=== PATIENT | female | born 1980 | race Two or more races ===

== ENCOUNTER → 2017-07-15 | Outpatient (REF) | payer BC | LOC: M SFHCWAGY 08:39 | PROVIDERS: ATTEND Nurse Practitioner Women's Health | DX: Z01.419 Encounter for gynecological examination (general) (routine) without abnormal findings (principal); Z11.51 Encounter for screening for human papillomavirus (HPV); R87.610 Atypical squamous cells of undetermined significance on cytologic smear of cervix (ASC-US) ==

== ENCOUNTER → 2017-07-21 | Outpatient (CLI) | payer BC ==
--- NOTE | 2017-07-22 06:19 | REP ---
Clinical: Menorrhagia . Technique: Transabdominal pelvic ultrasound followed by transvaginal examination for better evaluation of the endometrium and adnexa. Findings: Bladder is unremarkable and measures 10.4 x 6.2 x 9.7 cm . Normal anteverted uterus measures 7.9 x 5.5 x 4.3 cm . The endometrial complex measures 8.7 mm thickness with small amount of endocervical fluid. No discrete uterine or endometrial abnormalities are appreciated. Bilateral ovaries are normal in appearance. Right ovary measures 3.3 x 2.1 x 2.4 cm with sub centimeter follicles. Left ovary measures 4.1 x 2.7 x 3.3 cm with 2.8 cm septated physiologic cyst / dominant follicle. No pelvic fluid or adnexal mass lesion. Impression: 1. Essentially normal pelvic ultrasound as described above.
== END ==
LOC: M WHC 08:03
PROVIDERS: ATTEND Nurse Practitioner Women's Health
DX: N92.0 Excessive and frequent menstruation with regular cycle (principal)

== ENCOUNTER → 2018-07-16 | Outpatient (REF) | payer BC ==
[2018-07-18 15:36] LABS: HPV HYBRID CAPTURE II Negative (Negative)
== END ==
LOC: M SFHCWAGY 09:40
DX: Z12.4 Encounter for screening for malignant neoplasm of cervix (principal)
CPT/HCPCS: G0123

== ENCOUNTER → 2018-12-02 | Outpatient (CLI) | payer BC ==
[2018-12-02 13:03] LABS: BASO # 0.1 10^3/uL (0.0-0.2); BASO % 1.1 % (0.0-1.0); EOS # 0.2 10^3/uL (0.0-0.50); EOS % 2.4 % (0.0-3.0); HEMATOCRIT 39.9 % (36.0-47.0); HEMOGLOBIN 13.7 g/dl (12.0-15.5); LYMPH # 1.6 10^3/uL (1.5-4.5); LYMPH % 25.4 % (24.0-44.0); MEAN CORPUSCULAR HEMOGLOBIN 32.9 pg (27.0-33.0); MEAN CORPUSCULAR HGB CONC 34.3 g/dl (32.0-36.5); MEAN CORPUSCULAR VOLUME 95.9 fl (80.0-96.0); MONO # 0.6 10^3/uL (0.0-0.8); MONO % 8.8 % (0.0-5.0); NEUTROPHILS # 3.9 10^3/uL (1.8-7.7); PLATELET COUNT, AUTOMATED 320 10^3/uL (150-450); RED BLOOD COUNT 4.16 10^6/uL (4.00-5.40); WHITE BLOOD COUNT 6.3 10^3/uL (4.0-10.0)
[2018-12-02 13:06] LABS: ALT/SGPT 19 U/L (12-78); BILIRUBIN,TOTAL 0.4 MG/DL (0.2-1.0); BLOOD UREA NITROGEN 15 MG/DL (7-18); CALCIUM LEVEL 8.9 MG/DL (8.5-10.1); CARBON DIOXIDE LEVEL 23 MEQ/L (21-32); CHLORIDE LEVEL 108 MEQ/L (98-107); CHOLESTEROL LEVEL 193 MG/DL (<200); CREATININE FOR GFR 0.96 MG/DL (0.55-1.30); FREE T4 0.94 NG/DL (0.76-1.46); GLOMERULAR FILTRATION RATE > 60.0 (>58); GLUCOSE, FASTING 83 MG/DL (70-100); HDL CHOLESTEROL 67 MG/DL (>40); LDL CHOLESTEROL 118 MG/DL (<100); NON-HDL-C 126 MG/DL; POTASSIUM SERUM 4.8 MEQ/L (3.5-5.1); SODIUM LEVEL 139 MEQ/L (136-145); TOTAL PROTEIN 7.2 GM/DL (6.4-8.2); TRIGLYCERIDES LEVEL 42 MG/DL (<150)
[2018-12-02 13:08] LABS: LUTEINIZING HORMONE 3.8 mIU/mL
[2018-12-02 13:09] LABS: FOLLICLE STIMULATING HORMONE 6.7 mIU/mL
[2018-12-02 13:39] LABS: HEMOGLOBIN A1c 5.1 %
== END ==
LOC: M WUC 08:35
PROVIDERS: ATTEND Physician Assistant
DX: Z13.29 Encounter for screening for other suspected endocrine disorder (principal)

== ENCOUNTER → 2020-12-01 | Outpatient (CLI) | payer BC ==
[2020-12-01 12:59] LABS: BASO # 0.1 10^3/uL (0.0-0.2); BASO % 0.9 % (0.0-1.0); EOS # 0.2 10^3/uL (0.0-0.5); EOS % 2.3 % (0.0-3.0); HEMOGLOBIN 13.9 g/dl (12.0-15.5); LYMPH # 1.7 10^3/uL (1.5-5.0); LYMPH % 26.4 % (24.0-44.0); MEAN CORPUSCULAR HEMOGLOBIN 32.5 pg (27.0-33.0); MEAN CORPUSCULAR HGB CONC 33.9 g/dl (32.0-36.5); MEAN CORPUSCULAR VOLUME 95.8 fl (80.0-96.0); MONO # 0.6 10^3/uL (0.0-0.8); MONO % 9.6 % (0.0-5.0); NEUTROPHILS # 3.9 10^3/uL (1.5-8.5); NEUTROPHILS % 60.5 % (36.0-66.0); PLATELET COUNT, AUTOMATED 276 10^3/uL (150-450); RED BLOOD COUNT 4.28 10^6/uL (4.00-5.40); WHITE BLOOD COUNT 6.5 10^3/uL (4.0-10.0)
[2020-12-01 13:39] LABS: ALBUMIN 4.2 GM/DL (3.2-5.2); ALT/SGPT 26 U/L (12-78); BILIRUBIN,TOTAL 0.6 MG/DL (0.2-1.0); BLOOD UREA NITROGEN 12 MG/DL (7-18); CALCIUM LEVEL 9.6 MG/DL (8.5-10.1); CARBON DIOXIDE LEVEL 26 MEQ/L (21-32); CHLORIDE LEVEL 105 MEQ/L (98-107); CHOLESTEROL LEVEL 219 MG/DL (<200); CHOLESTEROL RISK RATIO 3.041 (<5); CREATININE FOR GFR 0.86 MG/DL (0.55-1.30); FREE T4 1.03 NG/DL (0.76-1.46); GLOMERULAR FILTRATION RATE > 60.0 (>58); GLUCOSE, FASTING 89 MG/DL (70-100); HDL CHOLESTEROL 72 MG/DL (>40); LDL CHOLESTEROL 139 MG/DL (<100); NON-HDL-C 147 MG/DL; POTASSIUM SERUM 4.6 MEQ/L (3.5-5.1); SODIUM LEVEL 139 MEQ/L (136-145); TOTAL PROTEIN 7.3 GM/DL (6.4-8.2); TRIGLYCERIDES LEVEL 41 MG/DL (<150)
== END ==
LOC: M WUC 09:17
PROVIDERS: ATTEND Family Medicine
DX: Z13.220 Encounter for screening for lipoid disorders (principal); Z13.0 Encounter for screening for diseases of the blood and blood-forming organs and certain disorders involving the immune mechanism; Z13.29 Encounter for screening for other suspected endocrine disorder

== ENCOUNTER → 2021-01-13 | Outpatient (CLI) | payer SELFPAY | LOC: M LABSMTC 10:44 | PROVIDERS: ATTEND Pediatrics | DX: Z11.52 Encounter for screening for COVID-19 (principal) ==

== ENCOUNTER → 2021-02-10 | Outpatient (CLI) | payer SELFPAY | LOC: M LABSMTC 09:58 | PROVIDERS: ATTEND Pediatrics | DX: Z11.52 Encounter for screening for COVID-19 (principal) ==

== ENCOUNTER 2021-06-30 22:04 | Emergency (ER) | payer BC ==
[~2021-06-30] VITALS: Ht 162.6 cm; Wt 100.2 kg
[2021-06-30] MEDS ORDERED: HYDR-643 PO (22:23)
--- NOTE | 2021-06-30 23:53 | REPVR ---
PROCEDURE INFORMATION: Exam: XR Left Knee Exam date and time: 06/30/2021 10:43 PM Age: 40 years old Clinical indication: Other: Puncture wound TECHNIQUE: Imaging protocol: XR Left knee. Views: 4 or more views. COMPARISON: No relevant prior studies available. FINDINGS: Bones/joints: Normal. No fracture. Soft tissues: Normal. No soft tissue gas or radiopaque foreign body. IMPRESSION: Negative left knee. Electronically signed by: Milind Lynne On 06/30/2021 23:53:13 PM
[2021-07-01] MEDS ORDERED: MORPHINE 2 MG/ML 1ML VIAL (J2270) IV ONE (00:35)
[2021-07-01] MEDS ORDERED: ceFAZolin SOD 1 GM in D5W MINI-BAG PLUS 50 ML IV ONE (00:35)
[2021-07-01] MEDS ORDERED: NS 1,000 ML IV ONE (00:35)
[2021-07-01] MEDS ORDERED: LIDOCAINE W/EPINEPHRINE 1% 20ML VIAL SC ONE (01:25)
[2021-07-01] MEDS ORDERED: BOOSTRIX/ADACEL VACCINE (DIPHTH/PERTUSS/ACELL/TETANUS) 0.5ML SYR IM ONE (01:55)
[2021-07-01] MEDS ORDERED: CEPH500T PO (03:10)
[2021-07-01] MEDS ORDERED: NORCO 5/325MG TABLET (BULK FOR ED) PO ONE (03:10)
[2021-07-01] MEDS ORDERED: KETO10TAB PO (03:10)
[2021-07-01 03:50] VITALS: BP 136/70
== END 2021-07-01 03:53 | disposition home or self-care (01) ==
LOC: M ED 22:04
DX: S81.012A Laceration without foreign body, left knee, initial encounter (principal); W18.39XA Other fall on same level, initial encounter; Y92.89 Other specified places as the place of occurrence of the external cause; Z91.018 Allergy to other foods; Z87.891 Personal history of nicotine dependence
CPT/HCPCS: 12002; 73564; 90471; 90715; 96365; 96375; 99284; J0690; J2270

== ENCOUNTER → 2021-07-03 | Outpatient (CLI) | payer BC ==
[~2021-07-03] MED LIST: CEPH500T PO; HYDR-643 PO; KETO10TAB PO
--- NOTE | 2021-07-03 16:36 | REP ---
INDICATION: SWELLING LT LEG COMPARISON: None. TECHNIQUE: Real time compression and duplex Doppler interrogation of the left lower extremity deep venous system is performed, including the right common femoral vein.Compression of the left peroneal and posterior tibial veins is performed. FINDINGS: The left common femoral, superficial femoral and popliteal veins are fully compressible with transducer pressure and demonstrate normal spontaneous and phasic flow, without evidence of deep venous thrombosis.The right common femoral vein demonstrates no thrombus.The left peroneal and posterior tibial veins could not be visualized due to body habitus. IMPRESSION: No evidence of deep venous thrombosis of the left lower extremity femoral popliteal venous system. <Electronically signed by Khanh Molina > 07/03/21 [id number]
== END ==
LOC: M RAD 15:14
PROVIDERS: ATTEND Orthopaedic Surgery
DX: R22.42 Localized swelling, mass and lump, left lower limb (principal)

== ENCOUNTER → 2021-08-20 | Outpatient (CLI) | payer BC ==
[~2021-08-20] MED LIST changes: +RA M500C PO
== END ==
LOC: M LABSMTC 11:37
PROVIDERS: ATTEND Anesthesiology
DX: Z01.818 Encounter for other preprocedural examination (principal); Z11.52 Encounter for screening for COVID-19

== ENCOUNTER 2021-08-24 10:10 | Day surgery (SDC) | payer BC ==
[~2021-08-24] VITALS: Ht 162.6 cm; Wt 97.4 kg
[~2021-08-24 10:10] MED LIST changes: +LIDOCAINE 2% 100MG/5ML SDV (FOR ANES.) As Ordered ONE; +NS 1,000 ML IV ONE; +propofoL 200 MG/20 ML VIAL As Ordered ONE
--- OUTSIDE RECORDS SUMMARY | 2021-08-24 10:14 | CCD | Continuity of Care Document ---
Author Author Janay NELSON DO Organization Unknown Address [address] [facility], [facility] [place] [address] Phone [phone] Care Team Providers Care Systems Eng Name Role Phone Regis Albert AUTM [phone] Maddie Howard D.O. AUTM AUTM Unavailable Problems Description No Information Available Social History Type Date Description Comments Sex Unknown ETOH Use 0-1/d Tobacco Use Start: Unknown Non Smoker Recreational Drug Use Denies Drug Use Tobacco Use Start: Unknown End: Unknown Patient is a former smoker quit 5 years ago hx of 1 ppd. Smoking Status Reviewed: 07/10/21 Patient is a former smoker qu it 5 years ago hx of 1 ppd. Allergies, Adverse Reactions, Alerts Active Allergies Criticality Reaction | Severity Comments Date NKDA Unable to assess criticality 07/03/2021 Shellfish-Derived Products Unable to assess criticality swelling, r edness 07/03/2021 Medications Active Medications SIG Qnty Indications Ordering Provide r Date Shaklee Vitalizer Vitamins Unknown Magnesium 400mg-1tab qd Unknown Hydroxyzine 10mg-1tab tid prn Unknown Cephalexin 500mg Tablets Joselito Hudson M.D. Ketorolac Tromethamine 10mg Tablets Joselito Hudson M.D. Immunizations Description No Information Available Vital Signs Date Vital Result Comment 07/10/2021 8:57am Body Temperature 97.3 F 07/03/2021 1:26pm Body Temperature 98.3 F Results Description No Information Available Procedures Date Code Description Status 07/10/2021 99182 Office/Outpatient Established SF MDM 10-19 Min Completed 07/03/2021 08701 Office/Outpatient New Low MDM 30 -44 Minutes Completed Medical Devices Description No Information Available Encounters Type Date Location Provider Dx Diagnosis Office Visit 07/10/2021 9:00a [facility] Taiwo Nelson, DO S81.012D Laceration without foreign body, left kn ee, subs encntr W01.118D Fall same lev fr slip/trip w strk agnst oth sharp obj, subs Office Visit 07/03/2021 1:30p [facility] Taiwo Nelson, DO S81.012A Laceration without foreign body, left kn ee, init encntr M25.562 Pain in left knee M79.89 Other specified soft tissue disorders W01.118A Fall same lev fr slip/trip w strk agnst oth sharp obj, init Assessments Date Code Description Provider 07/10/2021 S81.012D Laceration without f oreign body, left knee, subsequent encounter Bob Nelson, DO 07/10/2021 W01.118D Fall on same level f rom slipping, tripping and stumbling with subsequent striking against other sharp object, subsequent encounter Bob Nelson, 07/03/2021 S81.012A Laceration without f oreign body, left knee, initial encounter Bob Nelson, 07/03/2021 M25.562 Pain in left knee Taiwo Nelson, DO 07/03/2021 M79.89 Other specified soft tissue diso rders Bob Nelson, DO 07/03/2021 W01.118A Fall on same level f rom slipping, tripping and stumbling with subsequent striking against other sharp object, initial encounter Bob Nelson DO Plan of Treatment Future Appointment(s):* 08/08/2021 8:30 am - Ariel Sherwood M.D. at [facility] 07/10/2021 - Bob Nelson DO* S81.012D Laceration without foreign body, left knee, subsequent encounter* Comments:* 1. Suture removal with Steri- Strips added2. Patient weight-bear as tolerated. Return to full duties. Follow-up as needed. * W01.118D Fall on same level from slipping, tripping and stumbling with subsequent striking against other sharp object, subsequent encounter Functional Status Description No Information Available Mental Status Description No Information Available Referrals Refer to Reason for Referral Status Appt Date Ariel Sherwood M.D. FLAT STOOL, CONSTIPATION Scheduled 08/08/2021 [facility] [address] [facility], [place] [id number] [phone]"
--- OUTSIDE RECORDS SUMMARY | 2021-08-24 10:14 | CCD ---
Author Organization Unknown Address [address] [place] [address] Phone [phone] Care Team Providers Care Warehouse Administrative Assistant Name Role Phone Rusty Olsen Unavailable Unavailable Allergies None recorded. Medications Name Status Start Date Stop Date hydroxyzine HCl 10 mg tablet TAKE ONE TABLET BY MOUTH THREE TIMES A DAY NEEDED FOR ANXIETY Active Not available Dwayne 24 Fe 1 mg-20 mcg (24)/75 mg (4) t ablet TAKE ONE TABLET BY MOUTH EVERY DAY Active Not available Problems None recorded. Procedures None recorded. Results Lab Results None recorded. Past Encounters 06/07/2021 SARS-CoV-2 Vaccination Pratibha Schwab PA-C: [address] [place] [address], Ph. Social History None recorded. Vaccine List Vaccine Type COVID-19 vaccine, vector-nr, rS-Ad26, PF , 0.5 mL .5 mL Plan of Care Reminders Provider Appointments None recorded. Lab None recorded. Referral None recorded. Procedures None recorded. Surgeries None recorded. Imaging None recorded. Vitals None recorded.
--- OUTSIDE RECORDS SUMMARY | 2021-08-24 10:14 | CCD | Continuity of Care Document ---
Author Author Janay NELSON DO Organization Unknown Address [address] [facility], [facility] [place] [address] Phone [phone] Care Team Providers Care Building Official Name Role Phone Regis Albert AUTM [phone] Maddie Howard D.O. AUTM AUTM Unavailable Problems [...] Available Procedures Date Code Description Status 07/10/2021 69574 Office/Outpatient Established SF MDM 10-19 Min Completed 07/03/2021 28779 Office/Outpatient New Low MDM 30 -44 Minutes Completed Medical Devices Description No Information Available Encounters Type Date Location Provider Dx Diagnosis Office Visit 07/10/2021 9:00a [facility] Taiwo Nelson, DO S81.012D Laceration without foreign body, left kn ee, subs encntr W01.118D Fall same lev fr slip/trip w strk agnst oth sharp obj, subs Office Visit 07/03/2021 1:30p [facility] Taiwo Nelson, DO S81.012A Laceration without [...] 8:30 am - Ariel Sherwood M.D. at [facility] 07/10/2021 - Bob Nelson DO* [...] Sherwood M.D. FLAT STOOL, CONSTIPATION Scheduled 08/08/2021 [facility] [address] [facility], [place] [id number] [phone]"
--- OUTSIDE RECORDS SUMMARY | 2021-08-24 10:14 | CCD | Continuity of Care Document ---
Author Author Janay NELSON DO Organization Unknown Address [address] [facility], [facility] [place] [address] Phone [phone] Care Team Providers Care Microsoft Bi Architect Name Role Phone Regis Albert AUTM [phone] Maddie Howard D.O. AUTM AUTM Unavailable Problems Description No Information Available Social History Type Date Description Comments Sex Unknown ETOH Use 0-1/d Tobacco Use Start: Unknown Non Smoker Recreational Drug Use Denies Drug Use Tobacco Use Start: Unknown End: Unknown Patient is a former smoker quit 5 years ago hx of 1 ppd. Smoking Status Reviewed: 07/03/21 Patient is a former smoker qu it [...] Available Vital Signs Date Vital Result Comment 07/03/2021 1:26pm Body Temperature 98.3 F Results Description No Information Available Procedures Description No Information Available Medical Devices Description No Information Available Encounters Description No Information Available Assessments Date Code Description Provider 07/03/2021 S81.012A Laceration without f oreign body, left knee, initial encounter Bob Nelson DO Plan of Treatment Future Appointment(s):* 07/10/2021 9:00 am - Bob Nelson DO at [facility] * 08/08/2021 8:30 am - Ariel Sherwood M.D. at [facility] 07/03/2021 - Bob Nelson DO* S81.012A Laceration without foreign body, left knee, initial encounter* Comments:* Patient had a fall approximately 3 days ago. Direct trauma unsure knee.Limited range of motion due to pain. Diffuse swelling below the knee.Plan:1. Ultrasound left lower extremity to rule out DVT. If positive patient to go to the emergency room.[Discussed DVT and PE, recommended ultrasound left leg, if positive needs to go to ER for anticoagulation treatment.]2. Knee immobilizer to be used when mobilizing with crutches3. Follow-up in 1 week to remove sutures. May clean laceration with peroxide and sterile dressing. Functional Status Description No Information Available Mental Status Description No Information Available Referrals Refer to Dr Reason for Referral Status Appt Date Ariel Sherwood M.D. FLAT STOOL, CONSTIPATION Scheduled 08/08/2021 [facility] [address] [facility], [address] [place] [address] [phone]"
--- OUTSIDE RECORDS SUMMARY | 2021-08-24 10:15 | CCD ---
Author Author [facility] Organization [facility] Address Unknown Phone Unavailable Care Team Providers Care Surface Water Manager Name Role Phone CHRIS NEWMAN MD Unavailable Unavailable CHRIS NEWMAN MD Unavailable Unavailable CHRIS NEWMAN MD Unavailable Unavailable CHRIS NEWMAN MD Unavailable Unavailable CHRIS NEWMAN MD Unavailable Unavailable CHRIS NEWMAN MD Unavailable Unavailable CHRIS NEWMAN MD Unavailable Unavailable CHRIS NEWMAN MD Unavailable Unavailable CHRIS NEWMAN MD Unavailable Unavailable CHRIS NEWMAN MD Unavailable Unavailable CHRIS NEWMAN MD Unavailable Unavailable CHRIS NEWMAN MD Unavailable Unavailable CHRIS NEWMAN MD Unavailable Unavailable CHRIS NEWMAN MD Unavailable Unavailable CHRIS NEWMAN MD Unavailable Unavailable CHRIS NEWMAN MD Unavailable Unavailable CHRIS NEWMAN MD Unavailable Unavailable CHRIS NEWMAN MD Unavailable Unavailable CHRIS NEWMAN MD Unavailable Unavailable CHRIS NEWMAN MD Unavailable Unavailable CHRIS NEWMAN MD Unavailable Unavailable CHRIS NEWMAN MD Unavailable Unavailable DALPE-MAYTE, CHRIS TRISTAN Unavailable Unavailable DALPE-MAYTE, CHRIS TRISTAN Unavailable Unavailable DALPE-MAYTE, CHRIS TRISTAN Unavailable Unavailable DALPE-MAYTE, CHRIS TRISTAN Unavailable Unavailable DALPE-MAYTE, CHRIS TRISTAN Unavailable Unavailable DALPE-MAYTE, CHRIS TRISTAN Unavailable Unavailable DALPE-MAYTE, CHRIS TRISTAN Unavailable Unavailable DALPE-MAYTE, CHRIS TRISTAN Unavailable Unavailable DALPE-MAYTE, CHRIS TRISTAN Unavailable Unavailable DALPE-MAYTE, CHRIS TRISTAN Unavailable Unavailable DALPE-MAYTE, CHRIS TRISTAN Unavailable Unavailable DALPE-MAYTE, CHRIS TRISTAN Unavailable Unavailable DALPE-MAYTE, CHRIS TRISTAN Unavailable Unavailable DALPE-MAYTE, CHRIS TRISTAN Unavailable Unavailable DALPE-MAYTE, CHRIS TRISTAN Unavailable Unavailable DALPE-MAYTE, CHRIS TRISTAN Unavailable Unavailable DALPE-MAYTE, CHRIS TRISTAN Unavailable Unavailable DALPE-MAYTE, CHRIS TRISTAN Unavailable Unavailable DALPE-MAYTE, CHRIS TRISTAN Unavailable Unavailable DALPE-MAYTE, CHRIS TRISTAN Unavailable Unavailable DALPE-MAYTE, CHRIS TRISTAN Unavailable Unavailable DALPE-MAYTE, CHRIS TRISTAN Unavailable Unavailable DALPE-MAYTE, CHRIS TRISTAN Unavailable Unavailable DALPE-MAYTE, CHRIS TRISTAN Unavailable Unavailable DALPE-MAYTE, CHRIS TRISTAN Unavailable Unavailable DALPE-MAYTE, CHRIS TRISTAN Unavailable Unavailable DALPE-MAYTE, CHRIS TRISTAN Unavailable Unavailable DALPE-MAYTE, CHRIS TRISTAN Unavailable Unavailable DALPE-MAYTE, CHRIS TRISTAN Unavailable Unavailable FRANCHESCAPE-MAYTE, CHRIS TRISTAN Unavailable Unavailable DALPE-MAYTE, CHRIS TRISTAN Unavailable Unavailable DALPE-MAYTE, CHRIS TRISTAN Unavailable Unavailable DALPE-MAYTE, CHRIS TRISTAN Unavailable Unavailable DALPE-MAYTECHRIS MD Unavailable Unavailable DALPE-MAYTECHRIS MD Unavailable Unavailable DALPE-MAYTECHRIS MD Unavailable Unavailable DALPE-MAYTE, CHRIS TRISTAN Unavailable Unavailable DALPE-MAYTE, CHRIS TRISTAN Unavailable Unavailable DALPE-MAYTE, CHRIS TRISTAN Unavailable Unavailable SHAYNE-JULIO, KAELA DO Unavailable Unavailable SHAYNE-JULIO, KAELA DO Unavailable Unavailable SHAYNE-JULIO, KAELA DO Unavailable Unavailable SHAYNE-JULIO, KAELA DO Unavailable Unavailable SHAYNE-JULIO, KAELA DO Unavailable Unavailable SHAYNE-JULIO, KAELA DO Unavailable Unavailable SHAYNE-JULIO, KAELA DO Unavailable Unavailable SHAYNE-JULIO, KAELA DO Unavailable Unavailable SHAYNE-JULIO, KAELA DO Unavailable Unavailable SHAYNE-JULIO, KAELA DO Unavailable Unavailable SHAYNE-JULIO, KAELA DO Unavailable Unavailable SHAYNE-JULIO, KAELA DO Unavailable Unavailable SHAYNE-JULIO, KAELA DO Unavailable Unavailable SHAYNE-JULIO, KAELA DO Unavailable Unavailable SHANYE-JULIO, KAELA DO Unavailable Unavailable SHAYNE-JULIO, KAELA DO Unavailable Unavailable SHAYNE-JULIO, KAELA DO Unavailable Unavailable SHAYNE-JULIO, KAELA DO Unavailable Unavailable SHAYNE-JULIO, KAELA DO Unavailable Unavailable SHAYNE-JULIO, KAELA DO Unavailable Unavailable SHAYNE-JULIO, KAELA DO Unavailable Unavailable SHAYNE-JULIO, KAELA DO Unavailable Unavailable SHAYNE-JULIO, KAELA DO Unavailable Unavailable SHAYNE-JULIO, KAELA DO Unavailable Unavailable SHAYNE-JULIO, KAELA DO Unavailable Unavailable SHAYNE-JULIO, KAELA DO Unavailable Unavailable SHAYNE-JULIO, KAELA DO Unavailable Unavailable SHAYNE-JULIO, KAELA DO Unavailable Unavailable SHAYNE-JULIO, KAELA DO Unavailable Unavailable SHAYNE-JULIO, KAELA DO Unavailable Unavailable SHAYNE-JULIO, KAELA DO Unavailable Unavailable SHAYNE-JULIO, KAELA DO Unavailable Unavailable SHAYNE-JULIO, KAELA DO Unavailable Unavailable SHAYNE-JULIO, KAELA DO Unavailable Unavailable SHAYNE-JULIO, KAELA DO Unavailable Unavailable SHAYNE-JULIO, KAELA DO Unavailable Unavailable SHAYNE-JULIO, KAELA DO Unavailable Unavailable SHAYNE-JULIO, KAELA DO Unavailable Unavailable SHAYNE-JULIO, KAELA DO Unavailable Unavailable SHAYNE-JULIO, KAELA DO Unavailable Unavailable SHAYNE-JULIO, KAELA DO Unavailable Unavailable SHAYNE-JULIO, KAELA DO Unavailable Unavailable SHAYNE-JULIO, KAELA DO Unavailable Unavailable SHAYNE-JULIO, KAELA DO Unavailable Unavailable SHAYNE-JULIO, KAELA DO Unavailable Unavailable SHAYNE-JULIO, KAELA DO Unavailable Unavailable SHAYNE-JULIO, KAELA DO Unavailable Unavailable SHAYNE-JULIO, KAELA DO Unavailable Unavailable SHAYNE-JULIO, KAELA DO Unavailable Unavailable SHAYNE-JULIO, KAELA DO Unavailable Unavailable SHAYNE-JULIO, KAELA DO Unavailable Unavailable SHAYNE-JULIO, KAELA DO Unavailable Unavailable SHAYNE-JULIO, KAELA DO Unavailable Unavailable SHAYNE-JULIO, KAELA DO Unavailable Unavailable SHAYNE-JULIO, KAELA DO Unavailable Unavailable SHAYNE-JULIO, KAELA DO Unavailable Unavailable SHAYNE-JULIO, KAELA DO Unavailable Unavailable SHAYNE-JULIO, KAELA DO Unavailable Unavailable SHAYNE-JULIO, KAELA DO Unavailable Unavailable SHAYNE-JULIO, KAELA DO Unavailable Unavailable SHAYNE-JULIO, KAELA DO Unavailable Unavailable SHAYNE-JULIO, KAELA DO Unavailable Unavailable SHAYNE-JULIO, KAELA DO Unavailable Unavailable SHAYNE-JULIO, KAELA DO Unavailable Unavailable SHAYNE-JULIO, KAELA DO Unavailable Unavailable SHAYNE-JULIO, KAELA DO Unavailable Unavailable SHAYNE-JULIO, KAELA DO Unavailable Unavailable SHAYNE-UJLIO, KAELA DO Unavailable Unavailable SHAYNE-JULIO, KAELA DO Unavailable Unavailable SHAYNE-JULIO, KAELA DO Unavailable Unavailable SHAYNE-JULIO, KAELA DO Unavailable Unavailable SHAYNE-JULIO, KAELA DO Unavailable Unavailable SHAYNE-JULIO, KAELA DO Unavailable Unavailable SHAYNE-JULIO, KAELA DO Unavailable Unavailable SHAYNE-JULIO, KAELA DO Unavailable Unavailable SHAYNE-JULIO, KAELA DO Unavailable Unavailable SHAYNE-JULIO, KAELA DO Unavailable Unavailable SHAYNE-JULIO, KAELA DO Unavailable Unavailable SHAYNE-JULIO, KAELA DO Unavailable Unavailable SHAYNE-JULIO, KAELA DO Unavailable Unavailable SHAYNE-JULIO, KAELA DO Unavailable Unavailable SHAYNE-JULIO, KAELA DO Unavailable Unavailable SHAYNE-JULIO, KAELA DO Unavailable Unavailable SAHYNE-JULIO, KAELA DO Unavailable Unavailable NICOLE BRAR MD Unavailable Unavailable NICOLE BRAR MD Unavailable Unavailable DIXE, Antoinette PROFESSIONAL SOCCER PLAYER Unavailable Unavailable DIXE, Antoinette PROFESSIONAL SOCCER PLAYER Unavailable Unavailable DIXE, Antoinette PROFESSIONAL SOCCER PLAYER Unavailable Unavailable DIXE, Antoinette PROFESSIONAL SOCCER PLAYER Unavailable Unavailable DIXE, Antoinette PROFESSIONAL SOCCER PLAYER Unavailable Unavailable DIXE, Antoinette PROFESSIONAL SOCCER PLAYER Unavailable Unavailable DIXE, Antoinette PROFESSIONAL SOCCER PLAYER Unavailable Unavailable DIXE, Antoinette PROFESSIONAL SOCCER PLAYER Unavailable Unavailable DIXE, Antoinette PROFESSIONAL SOCCER PLAYER Unavailable Unavailable DIXE, Antoinette PROFESSIONAL SOCCER PLAYER Unavailable Unavailable DIXE, Antoinette PROFESSIONAL SOCCER PLAYER Unavailable Unavailable DIXE, Antoinette PROFESSIONAL SOCCER PLAYER Unavailable Unavailable DIXE, Antoinette PROFESSIONAL SOCCER PLAYER Unavailable Unavailable DIXE, Antoinette PROFESSIONAL SOCCER PLAYER Unavailable Unavailable DIXE, Antoinette PROFESSIONAL SOCCER PLAYER Unavailable Unavailable DIXE, Antoinette PROFESSIONAL SOCCER PLAYER Unavailable Unavailable DIXE, Antoinette PROFESSIONAL SOCCER PLAYER Unavailable Unavailable DIXE, Antoinette PROFESSIONAL SOCCER PLAYER Unavailable Unavailable DIXE, Antoinette PROFESSIONAL SOCCER PLAYER Unavailable Unavailable DIXE, Antoinette PROFESSIONAL SOCCER PLAYER Unavailable Unavailable DIXE, Antoinette PROFESSIONAL SOCCER PLAYER Unavailable Unavailable DIXE, Antoinette PROFESSIONAL SOCCER PLAYER Unavailable Unavailable DIXE, Antoinette PROFESSIONAL SOCCER PLAYER Unavailable Unavailable DIXE, Antoinette PROFESSIONAL SOCCER PLAYER Unavailable Unavailable DIXE, Antoinette PROFESSIONAL SOCCER PLAYER Unavailable Unavailable DIXE, Antoinette PROFESSIONAL SOCCER PLAYER Unavailable Unavailable DIXE, Antoinette PROFESSIONAL SOCCER PLAYER Unavailable Unavailable DIXE, Antoinette PROFESSIONAL SOCCER PLAYER Unavailable Unavailable DIXE, Antoinette PROFESSIONAL SOCCER PLAYER Unavailable Unavailable DIXE, Antoinette PROFESSIONAL SOCCER PLAYER Unavailable Unavailable DIXE, Antoinette PROFESSIONAL SOCCER PLAYER Unavailable Unavailable DIXE, Antoinette PROFESSIONAL SOCCER PLAYER Unavailable Unavailable DIXE, Antoinette PROFESSIONAL SOCCER PLAYER Unavailable Unavailable DIXE, Antoinette PROFESSIONAL SOCCER PLAYER Unavailable Unavailable DIXE, Antoinette PROFESSIONAL SOCCER PLAYER Unavailable Unavailable DIXE, Antoinette PROFESSIONAL SOCCER PLAYER Unavailable Unavailable DIXE, Antoinette PROFESSIONAL SOCCER PLAYER Unavailable Unavailable DIXE, Antoinette PROFESSIONAL SOCCER PLAYER Unavailable Unavailable DIXE, Antoinette PROFESSIONAL SOCCER PLAYER Unavailable Unavailable DIXE, Antoinette PROFESSIONAL SOCCER PLAYER Unavailable Unavailable DIXE, Antoinette PROFESSIONAL SOCCER PLAYER Unavailable Unavailable DIXE, Antoinette PROFESSIONAL SOCCER PLAYER Unavailable Unavailable DIXE, Antoinette PROFESSIONAL SOCCER PLAYER Unavailable Unavailable DIXE, Antoinette PROFESSIONAL SOCCER PLAYER Unavailable Unavailable DIXE, Antoinette PROFESSIONAL SOCCER PLAYER Unavailable Unavailable DIXE, Antoinette PROFESSIONAL SOCCER PLAYER Unavailable Unavailable DIXE, Antoinette PROFESSIONAL SOCCER PLAYER Unavailable Unavailable DIXE, Antoinette PROFESSIONAL SOCCER PLAYER Unavailable Unavailable DIXE, Antoinette PROFESSIONAL SOCCER PLAYER Unavailable Unavailable DIXE, Antoinette PROFESSIONAL SOCCER PLAYER Unavailable Unavailable DIXE, Antoinette PROFESSIONAL SOCCER PLAYER Unavailable Unavailable DIXE, Antoinette PROFESSIONAL SOCCER PLAYER Unavailable Unavailable DIXE, Antoinette PROFESSIONAL SOCCER PLAYER Unavailable Unavailable DIXE, Antoinette PROFESSIONAL SOCCER PLAYER Unavailable Unavailable DIXE, Antoinette PROFESSIONAL SOCCER PLAYER Unavailable Unavailable O'jayant, A Regis PA Unavailable Unavailable O'jayant, A Regis PA Unavailable Unavailable O'jayant, A Regis PA Unavailable Unavailable O'jayant, A Regis PA Unavailable Unavailable O'jayant, A Regis PA Unavailable Unavailable O'jayant, A Regis PA Unavailable Unavailable O'ajyant, A Regis PA Unavailable Unavailable O'jayant, A Regis PA Unavailable Unavailable O'jayant, A Regis PA Unavailable Unavailable O'jayant, A Regis PA Unavailable Unavailable O'jayant, A Regis PA Unavailable Unavailable O'jayant, A Regis PA Unavailable Unavailable O'jayant, A Regis PA Unavailable Unavailable O'jayant, A Reigs PA Unavailable Unavailable O'jayant, A Regis PA Unavailable Unavailable O'jayant, A Regis PA Unavailable Unavailable O'jayant, A Regis PA Unavailable Unavailable Ojayant, A Regis PA Unavailable Unavailable an, A Regis PA Unavailable Unavailable O'jayant, A Regis PA Unavailable Unavailable O'jayant, A Regis PA Unavailable Unavailable O'jayant, A Regis PA Unavailable Unavailable Ojayant, A Regis PA Unavailable Unavailable O, A Regis PA Unavailable Unavailable Ojayant, A Regis PA Unavailable Unavailable O, A Regis PA Unavailable Unavailable O', A Regis PA Unavailable Unavailable , A Regis PA Unavailable Unavailable , A Regis PA Unavailable Unavailable O, A Regis PA Unavailable Unavailable Ojayant, A Regis PA Unavailable Unavailable O'jayant, A Regis PA Unavailable Unavailable O'jayant, A Regis PA Unavailable Unavailable SHAYNE-JULIO, KAELA DO Unavailable Unavailable SHAYNE-JULIO, KAELA DO Unavailable Unavailable SHAYNE-JULIO, KAELA DO Unavailable Unavailable SHAYNE-JULIO, KAELA DO Unavailable Unavailable SHAYNE-JULIO, KAELA DO Unavailable Unavailable SHAYNE-JULIO, KAELA DO Unavailable Unavailable SHAYNE-JULIO, KAELA DO Unavailable Unavailable SHAYNE-JULIO, KAELA DO Unavailable Unavailable SHAYNE-JULIO, KAELA DO Unavailable Unavailable SHAYNE-JULIO, KAELA DO Unavailable Unavailable SHAYNE-JULIO, KAELA DO Unavailable Unavailable SHAYNE-JULIO, KAELA DO Unavailable Unavailable SHAYNE-JULIO, KAELA DO Unavailable Unavailable SHAYNE-JULIO, KAELA DO Unavailable Unavailable SHAYNE-JULIO, KAELA DO Unavailable Unavailable SHAYNE-JULIO, KAELA DO Unavailable Unavailable SHAYNE-JULIO, KAELA DO Unavailable Unavailable SHAYNE-JULIO, KAELA DO Unavailable Unavailable SHAYNE-JULIO, KAELA DO Unavailable Unavailable SHAYNE-JULIO, KAELA DO Unavailable Unavailable SHAYNE-JULIO, KAELA DO Unavailable Unavailable SHAYNE-JULIO, KAELA DO Unavailable Unavailable SHAYNE-JULIO, KAELA DO Unavailable Unavailable SHAYNE-JULIO, KAELA DO Unavailable Unavailable SHAYNE-JULIO, KAELA DO Unavailable Unavailable SHAYNE-JULIO, KAELA DO Unavailable Unavailable SHAYNE-JULIO, KAELA DO Unavailable Unavailable SHAYNE-JULIO, KAELA DO Unavailable Unavailable SHAYNE-JULIO, KAELA DO Unavailable Unavailable SHAYNE-JULIO, KAELA DO Unavailable Unavailable SHAYNE-JULIO, KAELA DO Unavailable Unavailable SHAYNE-JULIO, KAELA DO Unavailable Unavailable SHAYNE-JULIO, KAELA DO Unavailable Unavailable SHAYNE-JULIO, KAELA DO Unavailable Unavailable SHAYNE-JULIO, KAELA DO Unavailable Unavailable SHAYNE-JULIO, KAELA DO Unavailable Unavailable SHAYNE-JULIO, KAELA DO Unavailable Unavailable SHAYNE-JULIO, KAELA DO Unavailable Unavailable SHAYNE-JULIO, KAELA DO Unavailable Unavailable SHAYNE-JULIO, KAELA DO Unavailable Unavailable SHAYNE-JULIO, KAELA DO Unavailable Unavailable SHAYNE-JULIO, KAELA DO Unavailable Unavailable SHAYNE-JULIO, KAELA DO Unavailable Unavailable SHAYNE-JULIO, KAELA DO Unavailable Unavailable SHAYNE-JULIO, KAELA DO Unavailable Unavailable SHAYNE-JULIO, KAELA DO Unavailable Unavailable SHAYNE-JULIO, KAELA DO Unavailable Unavailable SHAYNE-JULIO, KAELA DO Unavailable Unavailable SHAYNE-JULIO, KAELA DO Unavailable Unavailable SHAYNE-JULIO, KAELA DO Unavailable Unavailable SHAYNE-JULIO, KAELA DO Unavailable Unavailable SHAYNE-JULIO, KAELA DO Unavailable Unavailable SHAYNE-JULIO, KAELA DO Unavailable Unavailable SHAYNE-JULIO, KAELA DO Unavailable Unavailable SHAYNE-JULIO, KAELA DO Unavailable Unavailable SHAYNE-JULIO, KAELA DO Unavailable Unavailable SHAYNE-JULIO, KAELA DO Unavailable Unavailable SHAYNE-JULIO, KAELA DO Unavailable Unavailable SHAYNE-JULIO, KAELA DO Unavailable Unavailable SHAYNE-JULIO, KAELA DO Unavailable Unavailable SHAYNE-JULIO, KAELA DO Unavailable Unavailable SHAYNE-JULIO, KAELA DO Unavailable Unavailable SHAYNE-JULIO, KAELA DO Unavailable Unavailable SHAYNE-JULIO, KAELA DO Unavailable Unavailable SHAYNE-JULIO, KAELA DO Unavailable Unavailable SHAYNE-JULIO, KAELA DO Unavailable Unavailable SHAYNE-JULIO, KAELA DO Unavailable Unavailable SHAYNE-JULIO, KAELA DO Unavailable Unavailable SHAYNE-JULIO, KAELA DO Unavailable Unavailable SHAYNE-JULIO, KAELA DO Unavailable Unavailable SHAYNE-JULIO, KAELA DO Unavailable Unavailable SHAYNE-JULIO, KAELA DO Unavailable Unavailable SHAYNE-JULIO, KAELA DO Unavailable Unavailable SHAYNE-JULIO, KAELA DO Unavailable Unavailable SHAYNE-JULIO, KAELA DO Unavailable Unavailable SHAYNE-JULIO, KAELA DO Unavailable Unavailable SHAYNE-JULIO, KAELA DO Unavailable Unavailable SHAYNE-JULIO, KAELA DO Unavailable Unavailable SHAYNE-JULIO, KAELA DO Unavailable Unavailable SHAYNE-JULIO, KAELA DO Unavailable Unavailable SHAYNE-JULIO, KAELA DO Unavailable Unavailable SHAYNE-JULIO, KAELA DO Unavailable Unavailable SHAYNE-JULIO, KAELA DO Unavailable Unavailable SHAYNE-JULIO, KAELA DO Unavailable Unavailable Scordo, M Pratibha PA Unavailable Unavailable Scordo, M Pratibha PA Unavailable Unavailable Scordo, M Pratibha PA Unavailable Unavailable Scordo, M Pratibha PA Unavailable Unavailable Scordo, M Pratibha PA Unavailable Unavailable Scordo, M Pratibha PA Unavailable Unavailable Scordo, M Pratibha PA Unavailable Unavailable Scordo, M Pratibha PA Unavailable Unavailable Scordo, M Pratibha PA Unavailable Unavailable Scordo, M Pratibha PA Unavailable Unavailable Scordo, M Pratibha PA Unavailable Unavailable Scordo, M Pratibha PA Unavailable Unavailable Scordo, M Pratibha PA Unavailable Unavailable Scordo, M Pratibha PA Unavailable Unavailable Scordo, M Pratibha PA Unavailable Unavailable Scordo, M Pratibha PA Unavailable Unavailable Scordo, M Pratibha PA Unavailable Unavailable Scordo, M Pratibha PA Unavailable Unavailable Scordo, M Pratibha PA Unavailable Unavailable Scordo, M Pratibha PA Unavailable Unavailable Scordo, M Pratibha PA Unavailable Unavailable Scordo, M Pratibha PA Unavailable Unavailable Scordo, M Pratibha PA Unavailable Unavailable Scordo, M Pratibha PA Unavailable Unavailable Scordo, M Pratibha PA Unavailable Unavailable Scordo, M Pratibha PA Unavailable Unavailable Scordo, M Pratibha PA Unavailable Unavailable Scordo, M Pratibha PA Unavailable Unavailable Scordo, M Pratibha PA Unavailable Unavailable Scordo, M Pratibha PA Unavailable Unavailable Scordo, M Pratibha PA Unavailable Unavailable Scordo, M Pratibha PA Unavailable Unavailable Scordo, M Pratibha PA Unavailable Unavailable Scordo, M Pratibha PA Unavailable Unavailable Scordo, M Pratibha PA Unavailable Unavailable Scordo, M Pratibha PA Unavailable Unavailable Scordo, M Pratibha PA Unavailable Unavailable Scordo, M Pratibha PA Unavailable Unavailable Scordo, M Pratibha PA Unavailable Unavailable Scordo, M Pratibha PA Unavailable Unavailable Scordo, M Pratibha PA Unavailable Unavailable Scordo, M Pratibha PA Unavailable Unavailable Scordo, M Pratibha PA Unavailable Unavailable Scordo, M Pratibha PA Unavailable Unavailable Scordo, M Pratibha PA Unavailable Unavailable Scordo, M Pratibha PA Unavailable Unavailable Scordo, M Pratibha PA Unavailable Unavailable CHRIS NEWMAN MD Unavailable Unavailable CHRIS NEWMAN MD Unavailable Unavailable CHRIS NEWMAN MD Unavailable Unavailable CHRIS NEWMAN MD Unavailable Unavailable CHRIS NEWMAN MD Unavailable Unavailable CHRIS NEWMAN MD Unavailable Unavailable CHRIS NEWMAN MD Unavailable Unavailable CHRIS NEWMAN MD Unavailable Unavailable CHRIS NEWMAN MD Unavailable Unavailable CHRIS NEWMAN MD Unavailable Unavailable CHRIS NEWMAN MD Unavailable Unavailable CHRIS NEWMAN MD Unavailable Unavailable CHRIS NEWMAN MD Unavailable Unavailable CHRIS NEWMAN MD Unavailable Unavailable CHRIS NEWMAN MD Unavailable Unavailable CHRIS NEWMAN MD Unavailable Unavailable CHRIS NEWMAN MD Unavailable Unavailable DALPE-MAYTECHRIS MD Unavailable Unavailable DALPE-MAYTECHRIS MD Unavailable Unavailable DALPE-MAYTE, CHRIS TRISTAN Unavailable Unavailable DALPE-MAYTE, CHRIS TRISTAN Unavailable Unavailable DALPE-MAYTE, CHRIS TRISTAN Unavailable Unavailable DALPE-MAYTE, CHRIS TRISTAN Unavailable Unavailable DALPE-MAYTECHRIS MD Unavailable Unavailable DALPE-MAYTE, CHRIS TRISTAN Unavailable Unavailable DALPE-MAYTE, CHRIS TRISTAN Unavailable Unavailable DALPE-MAYTE, CHRIS TRISTAN Unavailable Unavailable DALPE-MAYTE, CHRIS TRISTAN Unavailable Unavailable DALPE-MAYTE, CHRIS TRISTAN Unavailable Unavailable DALPE-MAYTECHRIS MD Unavailable Unavailable DALPE-MAYTE, CHRIS TRISTAN Unavailable Unavailable DALPE-MAYTE, CHRIS TRISTAN Unavailable Unavailable DALPE-MAYTE, CHRIS TRISTAN Unavailable Unavailable DALPE-MAYTE, CHRIS TRISTAN Unavailable Unavailable DALPE-MAYTECHRIS MD Unavailable Unavailable DALPE-MAYTECHRIS MD Unavailable Unavailable DALPE-MAYTECHRIS MD Unavailable Unavailable DALPE-MAYTECHRIS MD Unavailable Unavailable DALPE-MAYTECHRIS MD Unavailable Unavailable DALPE-MAYTECHRIS MD Unavailable Unavailable FRANCHESCAPE-MAYTECHRIS MD Unavailable Unavailable FRANCHESCAPE-MAYTECHRIS MD Unavailable Unavailable FRANCHESCAPE-MAYTECHRIS MD Unavailable Unavailable FRANCHESCAPE-MAYTECHRIS MD Unavailable Unavailable FRANCHESCAPE-MAYTECHRIS MD Unavailable Unavailable FOUZIA-CHRIS HU MD Unavailable Unavailable MARIELOSMAYTECHRIS MD Unavailable Unavailable CHRIS NEWMAN MD Unavailable Unavailable CHRIS NEWMAN MD Unavailable Unavailable FRANCHESCAPE-MAYTECHRIS MD Unavailable Unavailable DALPE-CHRIS HU MD Unavailable Unavailable CHRIS NEWMAN MD Unavailable Unavailable CHRIS NEWMAN MD Unavailable Unavailable CHRIS NEWMAN MD Unavailable Unavailable FRANCHESCAPECHRIS RANDHAWA MD Unavailable Unavailable FRANCHESCAPECHRIS RANDHAWA MD Unavailable Unavailable CHRIS NEWMAN MD Unavailable Unavailable CHRIS NEWMAN MD Unavailable Unavailable CHRIS NEWMAN MD Unavailable Unavailable DALPECHRIS RANDHAWA MD Unavailable Unavailable DALPECHRIS RANDHAWA MD Unavailable Unavailable Re-disclosure Warning The records that you are about to access may contain information from federally-assisted alcohol or drug abuse programs. If such information is present, then the following federally mandated warning applies: This information has been disclosed to you from records protected by federal confidentiality rules (42 CFR part 2). The federal rules prohibit you from making any further disclosure of this information unless further disclosure is expressly permitted by the written consent of the person to whom it pertains or as otherwise permitted by 42 CFR part 2. A general authorization for the release of medical or other information is NOT sufficient for this purpose. The Federal rules restrict any use of the information to criminally investigate or prosecute any alcohol or drug abuse patient.The records that you are about to access may contain highly sensitive health information, the redisclosure of which is protected by Article 27-F of the [facility] Public Health law. If you continue you may have access to information: Regarding HIV / AIDS; Provided by facilities licensed or operated by the [facility] Office of Mental Health; or Provided by the [facility] Office for People With Developmental Disabilities. If such information is present, then the following [facility] mandated warning applies: This information has been disclosed to you from confidential records which are protected by state law. State law prohibits you from making any further disclosure of this information without the specific written consent of the person to whom it pertains, or as otherwise permitted by law. Any unauthorized further disclosure in violation of state law may result in a fine or retirement sentence or both. A general authorization for the release of medical or other information is NOT sufficient authorization for further disc losure. Allergies and Adverse Reactions Type Description Substance Reaction Status Data Source(s ) Allergy to substance Allergy to substance Allergy to substance VIRGILIO ([facility]) Family History Family Member Name Family Member Gender Family Member Status Date o f Status Description Data Source(s) Unknown Male Problem [facility] ([facility]) Unknown Male Problem [facility] ([facility] ) Unknown Unknown Problem [facility] ([facility] Unknown Unknown Problem [facility] ([facility] Encounters Encounter Providers Location Date Indications Data Source(s ) Outpatient Attender: NICOLE Hogan/Helio/David/ Tashi 07/10/2021 09:00:00 AM EDT [facility] ([facility] Outpatient Attender: NICOLE Hogan/Helio/David/ Reindenice 07/03/2021 01:30:00 PM EDT [facility] ([facility] Pratibha Schwab PA-C: [address] [place] [id number], Ph. Attender: Pratibha BROWN [facility] Medical 06/07/2021 12:00:00 AM EDT [facility] ([facility]) Antoinette Marinelli, TAPE RULES PRINTING MACHINE OPERATOR, S: [address] [address], Ph. [phone] Attender: Antoinette MARINELLI CNP [facility] - Main Office 05/21/2021 12:00:00 AM EDT [facility] ([facility]) Outpatient Attender: KAELA JURADO DO [facility] Medicine [facility] 05/16/2021 08:00:00 AM EDT [facility] ([facility]) Chris Newman MD: [facility] [address] [address], Ph. Attender: CHRIS NEWMAN MD [facility] - Main Office 02/27/2021 12:00:00 AM EDT [facility] ([facility]) Chris Newman MD: [facility] [address] [address], Ph. Attender: CHRIS NEWMAN MD [facility] - Main Office 02/27/2021 12:00:00 AM EDT [facility] ([facility]) Attender: CHRIS NEWMAN MD 02/16/2021 07: 55:55 PM EDT [facility] [place] [facility] Outpatient Attender: CHRIS NEWMAN MDAdmitter: BRAD NEWMAN MD 02/15/2021 07:05:00 AM EDT - 02/15/2021 05:38:00 PM EDT ABNORMAL UTERINE BLEEDING, CONTRACEPTION [facility] ABNORMAL UTERINE BLEEDING, CONTRACEPTION Patient discharged. [place] ( in Healthcare facility) Attender: BHANU NEWMAN MDAdmitter: CHRIS NEWMAN MDConsultant: KAELA JURADO DO 02/15/2021 07:05:00 AM EDT [facility] Chris Newman MD: [address], [place] [address], Ph. Attender: CHRIS NEWMAN MD [facility] - Main Office 02/15/2021 12:00:00 AM EDT [facility] ([facility]) Chris Newman MD: [address], [place] [address], Ph. Attender: CHRIS NEWMAN MD [facility] - Main Office 02/15/2021 12:00:00 AM EDT [facility] ([facility]) Chris Newman MD: [address], [place] [address], Ph. Attender: CHRIS NEWMAN MD [facility] - Main Office 02/15/2021 12:00:00 AM EDT [facility] ([facility]) Outpatient Attender: CHRIS NEWMAN MD 02/06/2021 12: 09:50 PM EDT Lab [place] [facility] Outpatient Attender: CHRIS NEWMAN MD 02/07/20 10:43:00 AM EDT ELECTIVE HYSTEROSCOPIC HYDROTHERMAL ABLATION, [facility] ELECTIVE HYSTEROSCOPIC HYDROTHERMAL ABLA TION, [facility] Chris Newman MD: [address], [place] [address], Ph. Attender: CHRIS NEWMAN MD [facility] - Main Office 02/06/2021 12:00:00 AM EDT [facility] ([facility]) Chris Newman MD: [address], [place] [address], Ph. Attender: CHRIS NEWMAN MD [facility] - Main Office 02/06/2021 12:00:00 AM EDT [facility] ([facility]) Chris Newman MD: [address], [place] [address], Ph. Attender: CHRIS NEWMAN MD [facility] Main Office 02/06/2021 12:00:00 AM EDT [facility] ([facility]) Chris Newman MD: [address], [place] [address], Ph. Attender: CHRIS NEWMAN MD [facility] Main Office 02/06/2021 12:00:00 AM EDT [facility] ([facility]) Outpatient Attender: CHRIS NEWMAN MD 01/09/2021 03: 49:09 PM EDT [facility] Outpatient Attender: CHRIS NEWMAN MD 01/10/20 02:26:00 PM EDT ELECTIVE HYSTEROSCOPIC HYDROTHERMAL ABLATION, [facility] ELECTIVE HYSTEROSCOPIC HYDROTHERMAL ABLA TION, [facility] Chris Newman MD: [address], [place] [address], Ph. Attender: CHRIS NEWMAN MD [facility] Main Office 01/09/2021 12:00:00 AM EDT [facility] ([facility]) Chris Newman MD: [address], [place] [address], Ph. Attender: CHRIS NEWMAN MD [facility] - Main Office 01/09/2021 12:00:00 AM EDT [facility] ([facility]) Chris Newman MD: [address], [place] [address], Ph. Attender: CHRIS NEWMAN MD [facility] Main Office 01/09/2021 12:00:00 AM EDT [facility] ([facility]) Chris Newman MD: [address], [place] [address], Ph. Attender: CHRIS NEWMAN MD [facility] Main [facility] 01/09/2021 12:00:00 AM EDT [facility] ([facility]) Chris Newman MD: [address], [place] [address], Ph. Attender: CHRIS NEWMAN MD [facility] Main [facility] 01/09/2021 12:00:00 AM EDT [facility] ([facility]) Chris Newman MD: [address], [place] [address], Ph. Attender: CHRIS NEWMAN MD [facility] Main [facility] 12/07/2020 12:00:00 AM EST [facility] ([facility]) Chris Newman MD: [address], [place] [address], Ph. Attender: CHRIS NEWMAN MD [facility] Main [facility] 12/07/2020 12:00:00 AM EST [facility] ([facility]) Chris Newman MD: [address], [place] [address], Ph. Attender: CHRIS NEWMAN MD [facility] Main [facility] 12/07/2020 12:00:00 AM EST [facility] ([facility]) Chris Newman MD: [address], [place] [address], Ph. Attender: CHRIS NEWMAN MD [facility] Main [facility] 12/07/2020 12:00:00 AM EST [facility] ([facility]) Chris Newman MD: [address], [place] [address], Ph. Attender: CHRIS NEWMAN MD [facility] Main [facility] 12/07/2020 12:00:00 AM EST [facility] ([facility]) Chris Newman MD: [address], [place] [address], Ph. Attender: CHRIS NEWMAN MD [facility] Main [facility] 12/07/2020 12:00:00 AM EST [facility] ([facility]) Antoinette Marinelli NP, S: [address] [address], Ph. [phone] Attender: Antoinette MARINELLI CNP [facility] Main [facility] 11/20/2020 12:00:00 AM EST [facility] ([facility]) Antoinette Marinelli NP, S: [address] [address], Ph. [phone] Attender: Antoinette MARINELLI CNP [facility] Main [facility] 11/20/2020 12:00:00 AM EST [facility] ([facility]) Antoinette Marinelli NP, S: [address] [address], Ph. [phone] Attender: Antoinette MARINELLI CNP [facility] Main [facility] 11/20/2020 12:00:00 AM EST [facility] ([facility]) Antoinette Marinelli NP, S: [address] [facility] [address], [place] [address], Ph. [phone] Attender: Antoinette MARINELLI CNP [facility] - Main Office 11/20/2020 12:00:00 AM EST [facility] ([facility]) Antoinette Marinelli NP, S: [address] [facility] [address], [place] [address], Ph. [phone] Attender: Antoinette MARINELLI CNP [facility] - Main Office 11/20/2020 12:00:00 AM EST [facility] ([facility]) Antoinette Marinelli NP, S: [address] [facility] [address], [place] [address], Ph. [phone] Attender: Antoinette MARINELLI CNP [facility] - Main Office 11/20/2020 12:00:00 AM EST [facility] ([facility]) Antoinette Marinelli NP, S: [address] [place] [address], Ph. Attender: Anto[facility] 11/20/2020 12:00:00 AM EST [facility] ([facility]) Outpatient Attender: Regis BROWN [facility] 09/01/2020 01:00:00 PM [facility] TRAN ([facility]) Immunizations Vaccine Date Status Description Data Source(s) COVID-19 vaccine, vector-nr, rS-Ad26, PF, 0.5 mL 06/08/2021 08:24:59 AM EDT completed .5 mL [facility] ([facility]) COVID-19 VACCINE Dai 06/08/2021 12:00:00 AM EDT completed UBmatrixSIIS Vaccine Series Complete: YESThis Data wa s Submitted to [facility] Via yoonew. Medications Medication Brand Name Start Date Product Form Dose Route Admi nistrative Instructions Pharmacy Instructions Status Indications Reaction Description Data Source(s) 5 mg 08/09/2021 12:00:00 AM EDT tablet,delayed release (DR/EC) 4 TAKE 4 TABLETS BY MOUTH TOGETHER PER BOWEL PREP INSTRUCTIONS TAKE 4 TABLETS BY MOUTH TOGETHER PER BOWEL PREP INSTRUCTIONS SOLD: 08/10/2021 [facility] Citric Acid 75 MG/ML / Magnesium Oxide 2 1.9 MG/ML / picosulfate sodium 0.0625 MG/ML Oral Solution [Clenpiq] 10 mg-3.5 gram -12 gram/160 mL SOD PICOSULF/MAG OX/CITRIC AC 08/09/2021 12:00:00 AM EDT solution 320 F OLLOW PRE-PROCEDURE INSTRUCTIONS, START DAY BEFORE PROCEDURE FOLLOW PRE-PROCEDURE INSTRUCTIONS, START DAY BEFORE PROCEDURE SOLD: 08/10/2021 [facility] 17 gram/dose 08/08/2021 12:00:00 AM EDT powder 238 TAKE 17 GRAMS (1 CAPSFUL) MIXED WITH 8 OZ WATER/FLUID AND TAKE 1-2 TIMES PER DAY --HOLD OR DECREASE IF HAVING DIARRHEA TAKE 17 GRAMS (1 CAPSFUL) MIXED WITH 8 O Z WATER/FLUID AND TAKE 1-2 TIMES PER DAY --HOLD OR DECREASE IF HAVING DIARRHEA SOLD: 08/10/2021 [facility] 10 mg 07/01/2021 12:00:00 AM EDT tablet 20 TAKE ONE TABLET BY MOUTH EVERY 6 HOURS TAKE ONE TABLET BY MOUTH EVERY 6 HOURS SOLD: 07/01/2021 [facility] 500 mg 07/01/2021 12:00:00 AM EDT tablet 28 TAKE ONE TABLET BY MOUTH FOUR TIMES A DAY FOR 7 DAYS TAKE ONE TABLET BY MOUTH FOUR TIMES A DAY FOR 7 DAYS SOLD: 07/01/2021 [facility] Levonorgestrel 0.631655 MG/HR Drug Impla nt [Mirena] Mirena 20 mcg/24 hours (6 yrs) 52 mg intrauterine device Take by intrauterine route. Mirena 20 mcg/24 hours (6 yrs) 52 mg intrauterine device Take by intrauterine route. 02/15/2021 12:00:00 AM EDT completed levonorgestrel 0.308857 MG/HR Intrauterine System [Mirena] [facility] ([facility]) 10 mg 09/02/2020 12:00:00 AM EST tablet 180 TAKE ONE TABLET BY MOUTH THREE TIMES A DAY NEEDED FOR ANXIETY TAKE ONE TABLET BY MOUTH THREE TIMES A D AY NEEDED FOR ANXIETY SOLD: 09/02/2020 [facility] Hydroxyzine Hydrochloride 10 MG Oral Tablet Hydroxyzine HCL 09/01/2020 12:00:00 AM EST ORAL active [facility] ([facility]) 1 mg-20 mcg (24)/75 mg (4) 05/22/2020 12:00:00 AM EDT tablet 28 TAKE ONE TABLET BY MOUTH EVERY DAY TAKE ONE TABLET BY MOUTH EVERY DAY SOLD: 07/06/2020 [facility] Dwayne 24 Fe 1 mg-20 mcg (24)/75 mg (4) t ablet TAKE ONE TABLET BY MOUTH EVERY DAY [id number] completed Dwayne 24 Fe 1 mg-20 mcg (24)/75 mg (4) tablet [facility] ([facility]) Dwayne 24 Fe 1 mg-20 mcg (24)/75 mg (4) t ablet TAKE ONE TABLET BY MOUTH EVERY DAY [id number] completed Dwayne 24 Fe 1 mg-20 mcg (24)/75 mg (4) tablet [facility] ([facility]) Dwayne 24 Fe 1 mg-20 mcg (24)/75 mg (4) t ablet TAKE ONE TABLET BY MOUTH EVERY DAY [id number] completed Dwayne 24 Fe 1 mg-20 mcg (24)/75 mg (4) tablet [facility] ([facility]) Dwayne 24 Fe 1 mg-20 mcg (24)/75 mg (4) t ablet TAKE ONE TABLET BY MOUTH EVERY DAY [id number] completed Dwayne 24 Fe 1 mg-20 mcg (24)/75 mg (4) tablet [facility] ([facility]) Dwayne 24 Fe 1 mg-20 mcg (24)/75 mg (4) t ablet TAKE ONE TABLET BY MOUTH EVERY DAY [id number] completed Dwayne 24 Fe 1 mg-20 mcg (24)/75 mg (4) tablet [facility] ([facility]) Dwayne 24 Fe 1 mg-20 mcg (24)/75 mg (4) t ablet TAKE ONE TABLET BY MOUTH EVERY DAY [id number] completed Dwayne 24 Fe 1 mg-20 mcg (24)/75 mg (4) tablet [facility] ([facility]) Insurance Providers Payer name Policy type / Coverage type Policy ID Covered alliance party ID Covered alliance party's relationship to denise Policy Denise Plan Information [employer] [place]/307 [id number] SP [id number] [place] [place]/307 [id number] SP [id number] [place] PPO 302/307 [id number] SP [id number] EXCELLUS BLUE CROSS BLUE SHIELD HEA [id number] S [id number] SELF PAY ONLY [id number] SP [id number] EXCELL[employer] BCBS B [id number] S [id number] [facility] [id number] Self [id number] [facility] Commercial [id number] [id number] Self [id number] BS [place] Commercial [id number] [id number] Self [id number] ANSI-Commercial [id number] BS [place] Commercial [id number] [id number] Self [id number] BS [place] Commercial [id number] [id number] Self [id number] [employer] Commercial [id number] Self [employer] PPO 302/307 [id number] SP [id number] Problems, Conditions, and Diagnoses Code Display Name Description Problem Type Effective Dates Data Source(s) [id number] History of SARS-CoV-2 History of SARS-CoV-2 Prob janeen 02/06/2021 12:00:00 AM EDT [place] ([facility]) [id number] History of SARS-CoV-2 History of SARS-CoV-2 Prob janeen 02/06/2021 12:00:00 AM EDT [place] ([facility]) [id number] History of SARS-CoV-2 History of SARS-CoV-2 Prob janeen 02/06/2021 12:00:00 AM EDT [place] ([facility]) [id number] History of SARS-CoV-2 History of SARS-CoV-2 Prob janeen 02/06/2021 12:00:00 AM EDT [place] ([facility]) Surgeries/Procedures Procedure Description Date Indications Data Source(s) OFFICE OUTPATIENT VISIT 10 MINUTES 07/10/2021 12:00:00 AM [facility] ([facility]) OFFICE OUTPATIENT NEW 30 MINUTES 07/03/2021 12:00:00 A M [facility] ([facility]) PERIODIC PREVENTIVE MED EST PATIENT 40-64YRS 12:00:00 AM EDT [facility] ([facility]) Hysteroscopy, with Endometrial Ablation (Surg) 12:00:00 AM EDT [place] ([facility]) Hysteroscopy, with Endometrial Ablation (Surg) 12:00:00 AM EDT [place] ([facility]) Endometrial Ablation 02/15/2021 12:00:00 AM EDT [place] ([facility]) Hysteroscopy, with Endometrial Ablation (Surg) 12:00:00 AM EDT [place] ([facility]) Hysteroscopy, with Endometrial Ablation (Surg) 04/22/2 021 12:00:00 AM EDT [facility] ([facility]) Results ID Date Data Source [id number] 02/16/2021 07:55:54 PM EDT [place], [place] [address]Tel# SURGICAL PATHOLOGY REPORTPatient Name:GLADIS POSADA:1980Received:02/15/2021ccession #:[id number](s) Received: A: EMCClinical Diagnosis and History: Abnormal uterine bleeding.DIAGNOSIS:ENDOMETRIUM, CURETTINGS - EARLY SECRETORY PHASE ENDOMETRIUM; SMALL FRAGMENTS OF ENDOCERVICAL MUCOSA AND ECTOCERVICAL SQUAMOUS EPITHELIUM WITH NO SIGNIFICANT HISTOPATHOLOGIC FINDINGS. GROSS DESCRIPTION: Specimen received in formalin labeled "EMC" is a 2.4 x 1.8 x 0.3 cmaggregate of red- brown, irregular soft tissue fragments which aresubmitted in toto in a mesh bag for microscopic examination. (1 block) jzwqpagerber/mecReported: 02/16/2021Electronically Signed Out By Bin Luciano MD [facility] [place], [place] [address]Technical component performed at [facility], Histopathology, [address] [place] [address], [facility].Reported at [facility], [address] [place] [address], [facility].This report may include immunohisto chemical or in-situ hybridizationresults. Testing was developed and the performance characteristicsdetermined by [facility], as required byCLIA '88. The FDA has determined that approval for specific use is notnecessary for clinical use. The quality of Hematoxylin and Eosin stainsand as applicable, for all immunohistochemical and/or special stains,including positive and negative controls, were reviewed and consideredappropriate.ICD codes: N93.8CPT4 codes: A: 42834D Name Value Range Interpretation Code Description Data Laura rce(s) Supporting Document(s) ID Date Data Source [id number] 02/15/2021 05:10:00 PM EDT Sriram [address] [place], [place] [address]KDNXAYR NAME: GLADIS POSADADATE OF : 1980REPORT: OPERATIONPATIENT NUMBER: [id number] STATUS: SDMEDICAL RECORD NUMBER: [id number] OF ADMISSION: 02/15/2021ATE OF DISCHARGE:ROOM: 01DATE OF PROCEDURE: 02/15/2021REOPERATIVE DIAGNOSIS: Abnormal uterine bleeding.POSTOPERATIVE DIAGNOSIS: Abnormal uterine bleeding.PROCEDURE: Hysteroscopy, D and C, hydrothermal ablation, Mirena insertion.SURGEON: Chris Newman, MDASSISTANT: None.ANESTHESIA: MAC with local anesthesia.OUTSIDE BARREL LATHE OPERATOR: Dr. Kendrick BLOOD LOSS: Minimal.FLUIDS: Crystalloid.CATHETER: None.COMPLICATIONS: None.INDICATIONS: The patient is a 40-year-old female 0 who has triedOCPs had a Mirena in the past for abnormal bleeding. She had a workup thatincluded an FSH of 5.8. Endometrial biopsy that was proliferative. Noanemia on CBC, but she did have a submucosal fibroid measuring 2.9 cm onsonogram. She is not interested in conceiving and wishes to havedefinitive management for the bleeding. She opts for a hydrothermalablation due to the large fibroid and she wishes to have the Mirenareplaced for contraception as she was happy with the device forcontraception as it did not work for bleeding. The procedure risks andbenefits were reviewed and she agreed to proceed.FINDINGS: Examination under anesthesia revealed an enlarged uterus, butthe exam was limited secondary to her body habitus. Operative findingsrevealed a submucosal fibroid abutting into the cavity with a large amountof tissue. D and C was performed and the lining was thinner. Hysteroscopyafter the procedure revealed adequate charring of all endometrial surfaces.DESCRIPTION OF PROCEDURE: The patient was taken to the operating room withan IV running after informed consent was obtained. She was prepared anddraped in the normal sterile fashion in the dorsal lithotomy position. Herbladder was drained for 375 cc of clear urine. Two Whitaker speculums wereplaced into the vagina in order to expose the cervix. The anterior lip wasgrasped with a single-tooth tenaculum and a paracervical block wasperformed using 10 cc of 1 percent lidocaine. The uterus was sounded to8.5 cm. The cervix was dilated with Hegar dilators up to a number 8 andthe hysteroscope was introduced with the above findings noted. Due to thelarge amount of tissue within the cavity, a sharp curettage was performedfor a large amount of tissue. The hysteroscope was reintroduced and placedinto the lower uterine segment so that the entire cavity could bevisualized. A open fluffed 4x4 was placed into the vagina and thetenaculum stabilizer placed. The cavity assessment was performed and therewas no fluid loss. The HTA procedure was then performed after heating thefluid for 80 degrees Celsius for a total of 10 minutes. After a cool downperiod, a diagnostic hysteroscopy was performed again revealing adequatecharring of all endometrial surfaces. The hysteroscope was removed and aMirena IUD was inserted in the typical manner after sounding the uterus to8 cm. The strings were trimmed to 1 inch. The tenaculum was removed andthe tenac ulum sites were noted to be hemostatic. All instruments wereremoved from the patient's vagina. She was taken to the recovery room inawake, alert, and stable condition.DICTATED BY: Chris Newman, MDDictated: 02/15/2021 13:54DT: 02/15/2021 14:03Job #: [id number]: [facility] computer generated reports are not confirmed orauthenticated unless they are signed by the providerElectronically Authenticated by:CHRIS NEWMAN MD On 02/15/2021 05:10 PM EDT Name Value Range Interpretation Code Description Data Laura rce(s) Supporting Document(s) ID Date Data Source [id number] 02/10/2021 10:00:00 AM EDT [facility] Name Value Range Interpretation Code Description Data Laura rce(s) Supporting Document(s) SARS-CoV-2 (COVID-19) RNA [Presence] in Respiratory specimen by KATIE with probe detection Not Detected [facility] This lab was ordered by [facility] and reported by [facility]. ID Date Data Source [id number] 02/06/2021 12:09:50 PM EDT [facility] Name Value Range Interpretation Code Description Data Laura rce(s) Supporting Document(s) HCG,QUANT PREG <1 mU/mL [facility] INTERPRETATION:LESS THAN 6 NEGATIVE 6 - 10 BORDERLINE (SUGGEST REPEAT IN 48 HOURS) APPROX HCG RANGE WEEKS POST LMP 11 - 130 3 - 4 WEEKS 75 - 2600 4 - 5 WEEKS 850 - 58494 5 - 6 WEEKS 4000 - 758391 6 - 7 [id number] - [id number] 7 - 12 [id number] - [id number] 12 - 16 WEEKS 1400 - 21928 16 - 29 WEEKS 940 - 79879 29 - 41 WEEKS ID Date Data Source [id number] 01/13/2021 11:00:00 AM EDT [place] ([facility]) Name Value Range Interpretation Code Description Data Laura rce(s) Supporting Document(s) ID Date Data Source [id number] 01/13/2021 11:00:00 AM EDT [facility] ([facility]) Name Value Range Interpretation Code Description Data Laura rce(s) Supporting Document(s) ID Date Data Source [id number] 01/13/2021 11:00:00 AM EDT [facility] ([facility]) Name Value Range Interpretation Code Description Data Laura rce(s) Supporting Document(s) ID Date Data Source [id number] 01/13/2021 11:00:00 AM EDT [facility] ([facility]) Name Value Range Interpretation Code Description Data Laura rce(s) Supporting Document(s) ID Date Data Source [id number] 01/13/2021 11:00:00 AM EDT [facility] Name Value Range Interpretation Code Description Data Laura rce(s) Supporting Document(s) SARS-CoV-2 (COVID-19) RNA [Presence] in Respiratory specimen by KATIE with probe detection Positive for 2019-nCoV [facility] This lab was ordered by [facility] and reported by [facility]. ID Date Data Source [id number] 01/09/2021 03:49:08 PM EDT [facility] Name Value Range Interpretation Code Description Data Laura rce(s) Supporting Document(s) HCG,QUANT PREG <1 mU/mL [facility] INTERPRETATION:LESS THAN 6 NEGATIVE 6 - 10 BORDERLINE (SUGGEST REPEAT IN 48 HOURS) APPROX HCG RANGE WEEKS POST LMP 11 - 130 3 - 4 WEEKS 75 - 2600 4 - 5 WEEKS 850 - 27354 5 - 6 WEEKS 4000 - 849409 6 - 7 [id number] - [id number] 7 - 12 [id number] - [id number] 12 - 16 WEEKS 1400 - 32473 16 - 29 WEEKS 940 - 96544 29 - 41 WEEKS ID Date Data Source [id number] 12/01/2020 09:17:00 AM EST [facility] ([facility]) Name Value Range Interpretation Code Description Data Laura rce(s) Supporting Document(s) Thyroid Stimulating Hormone 1.210 uIU/ML 0.358-3.740 Norm al (applies to non- numeric results) [facility] ([facility]) Free T4 1.03 ng/dL 0.76-1.46 Normal (applies to non-numeric resul ts) [facility] ID Date Data Source [id number] 12/01/2020 09:17:00 AM EST [facility] ([facility]) Name Value Range Interpretation Code Description Data Laura rce(s) Supporting Document(s) Glucose, Fasting 89 mg/dL 70-100 Normal (applies to non-numeric results) [facility] Blood Urea Nitrogen 12 mg/dL 7-18 Normal (applies to non-nume genesis results) [facility] Glomerular Filtration Rate Laboratory test result Normal (applies to non- numeric results) [facility] <content>Units are mL/min/1.73 m2</content>
<content></content>
<content>Chronic Kidney Disease Staging per NKF:</content>
<content></content>
<content>Stage I & II GFR >=60 Normal to Mildly Decreased</content>
<content>Stage III GFR 30- 59 Moderately Decreased</content>
<content>Stage IV GFR 15-29 Severely Decreased</content>
<content>Stage V GFR <15 Very Little GFR Left</content>
<content>ESRD GFR <15 on BUILDING PERFORMANCE CONSULTANT</content>
<content></content> Creatinine For GFR 0.86 mg/dL 0.55-1.30 Normal (applies to non -numeric results) [facility] ([facility]) Sodium Level 139 meq/L 136-145 Normal (applies to non-numeric res ults) [facility] ([facility]) Potassium Serum 4.6 meq/L 3.5-5.1 Normal (applies to non-numeric results) [facility] ([facility]) Chloride Level 105 meq/L 98-107 Normal (applies to non-numeric r esults) [facility] ([facility]) Anion Gap 8 meq/L 8-16 Normal (applies to non-numeric resul ts) [facility] Carbon Dioxide Level 26 meq/L 21-32 Normal (applies to non-num padma results) [facility] ([facility]) Ast/Sgot 10 U/L 7-37 Normal (applies to non-numeric resul ts) [facility] Calcium Level 9.6 mg/dL 8.5-10.1 Normal (applies to non-numeric re sults) [facility] ([facility]) Alt/SGPT 26 U/L 12-78 Normal (applies to non-numeric resul ts) [facility] Alkaline Phosphatase 71 U/L 45-117 Normal (applies to non-num padma results) [facility] ([facility]) Bilirubin,Total 0.6 mg/dL 0.2-1.0 Normal (applies to non-numeric results) [facility] ([facility]) Albumin 4.2 GM/DL 3.2-5.2 Normal (applies to non-numeric resul ts) [facility] ([facility]) Total Protein 7.3 GM/DL 6.4-8.2 Normal (applies to non-numeric re sults) [facility] ([facility]) Albumin/Globulin Ratio 1.4 1.2-2.2 Normal (applies to non-n umeric results) [facility] ([facility]) ID Date Data Source [id number] 12/01/2020 09:17:00 AM EST [facility] ([facility]) Name Value Range Interpretation Code Description Data Laura rce(s) Supporting Document(s) Red Blood Count 4.28 10 4.00-5.40 Normal (applies to non-numeric results) [facility] White Blood Count 6.5 10 4.0-10.0 Normal (applies to non-numeri c results) [facility] Hemoglobin 13.9 g/dL 12.0-15.5 Normal (applies to non-numeric resul ts) [facility] ([facility]) Hematocrit 41.0 % 36.0-47.0 Normal (applies to non-numeric resul ts) [facility] Mean Corpuscular Volume 95.8 fl 80.0-96.0 Normal ( applies to non-numeric results) [facility] Mean Corpuscular Hemoglobin 32.5 pg 27.0-33.0 Norm al (applies to non-numeric results) [facility] Mean Corpuscular HGB Conc 33.9 g/dL 32.0-36.5 Normal (applies to non-numeric results) [facility] ([facility]) Red Cell Distribution Width 12.4 % 11.5-14.5 Norm al (applies to non-numeric results) [facility] ([facility]) Neutrophils % 60.5 % 36.0-66.0 Normal (applies to non-numeric re sults) [facility] ([facility]) Lymph % 26.4 % 24.0-44.0 Normal (applies to non-numeric resul ts) [facility] ([facility]) Platelet Count, Automated 276 10 150-450 Normal (applies to non-numeric results) [facility] ([facility]) Eos % 2.3 % 0.0-3.0 Normal (applies to non-numeric resul ts) [facility] ([facility]) [place] % 9.6 % 0.0-5.0 Above high normal [facility] ([facility]) Immature Granulocyte % 0.3 % 0-3.0 Normal (applies to non-n umeric results) [facility] ([facility]) Baso % 0.9 % 0.0-1.0 Normal (applies to non-numeric resul ts) [facility] ([facility]) Nucleated Red Blood Cell % 0.0 % 0-0 Normal (applies to n on-numeric results) [facility] ([facility]) Lymph # 1.7 10 1.5-5.0 Normal (applies to non-numeric resul ts) [facility] ([facility]) Neutrophils # 3.9 10 1.5-8.5 Normal (applies to non-numeric re sults) [facility] ([facility]) [place] # 0.6 10 0.0-0.8 Normal (applies to non-numeric resul ts) [facility] ([facility]) Eos # 0.2 10 0.0-0.5 Normal (applies to non-numeric resul ts) [facility] ([facility]) Baso # 0.1 10 0.0-0.2 Normal (applies to non-numeric resul ts) [facility] ([facility]) ID Date Data Source [id number] 12/01/2020 09:17:00 AM EST [facility] Name Value Range Interpretation Code Description Data Laura rce(s) Supporting Document(s) Triglycerides Level 41 mg/dL Normal (applies to non-nume genesis results) [facility] ([facility]) Cholesterol Level 219 mg/dL Above high normal [facility] ([facility]) LDL Cholesterol 139 mg/dL Above high normal [facility] ([facility]) HDL Cholesterol 72 mg/dL Normal (applies to non-numeric results) [facility] ([facility]) Cholesterol Risk Ratio 3.041 Normal (applies to non-n umeric results) [facility] ([facility]) Non-HDL-C 147 mg/dL Normal (applies to non-numeric resul ts) [facility] ID Date Data Source [id number] 12/01/2020 12:00:00 AM EST [facility] Regis Romero Pa-C Patient Name: CHARISSE [id number] Date of : 1980[place] [address] Date of Exam: 12/01/2020#: Fax: [phone] EXAM: MAMMO SCREENING WITH CADCLINICAL INFORMATION: Screening mammogram.COMPARISON: 09/17/2019.FAMILY HISTORY: Grandmother with breast cancer in her 80's.Based on the personal and family history information your patient suppliedat the time of imaging, her lifetime risk of breast cancer estimated by theTyrer-Cuzick model is 18.3%. Given that this patient has less than 20% TCrisk score, no further medical management is currently recommended at thistime.Digital screening (2D) mammography was performed bilaterally.Additionally, breast tomosynthesis (3D mammography) was performedbilaterally in the CC and MLO projections and compared to the priorexam(s).There has been no change in appearance of the mammogram from prior studies. There is a moderate amount of residual fibroglandular tissue remaining,which is fairly symmetric. There has been no interval development ofdominant masses, areas of structural distortion or clusters ofmicrocalcifications typical of malignancy.Scattered lymph nodes are seen in the axilla.The Volpara volumetric breast density category is C, the breasts areheterogeneously dense which may obscure small masses.IMPRESSION:BI- RADS Category 1 - Negative Mammogram. Currently no mammographicevidence of malignancy. Routine follow-up is recommended in 1 year.This mammogram was read with the assistance of [employer], an FDAapproved computer aided detection system for mammography.Negative x-ray reports should not delay surgic al consultation if a dominantor clinically suspicious mass is present.Not all breast cancers can be identified by mammography. Therefore, werecommend that you continue to perform regular breast self-examination andphysical examination and then promptly contact your physician of anyconcerns or changes.Adenosis and dense breasts may obscure an underlying neoplasm. The patient states that the last clinical breast exam was 04/2020.REYNA House/Darekk jamel for referring GLADIS POSADA to our office. Electronically Signed - ROSSANA OSMAN MD 12/04/20 11:38 Name Value Range Interpretation Code Description Data Laura rce(s) Supporting Document(s) ID Date Data Source [id number] 11/22/2020 01:01:00 PM EST [facility] ([facility]) Name Value Range Interpretation Code Description Data Laura rce(s) Supporting Document(s) Gardnerella negative Gardnerella [facility] ([facility]) ID Date Data Source [id number] 11/22/2020 01:01:00 PM EST [facility] ([facility]) Name Value Range Interpretation Code Description Data Laura rce(s) Supporting Document(s) Trichomonas negative Trichomonas [facility] ([facility]) ID Date Data Source [id number] 11/22/2020 01:01:00 PM EST [facility] ([facility]) Name Value Range Interpretation Code Description Data Laura rce(s) Supporting Document(s) Gardnerella negative Gardnerella [facility] ([facility]) ID Date Data Source [id number] 11/22/2020 01:01:00 PM EST [facility] ([facility]) Name Value Range Interpretation Code Description Data Laura rce(s) Supporting Document(s) Trichomonas negative Trichomonas [facility] ([facility]) ID Date Data Source [id number] 11/22/2020 01:01:00 PM EST [facility] ([facility]) Name Value Range Interpretation Code Description Data Laura rce(s) Supporting Document(s) Gardnerella negative Gardnerella [facility] ([facility]) ID Date Data Source [id number] 11/22/2020 01:01:00 PM EST [facility] ([facility]) Name Value Range Interpretation Code Description Data Laura rce(s) Supporting Document(s) Trichomonas negative Trichomonas [facility] ([facility]) ID Date Data Source [id number] 11/22/2020 01:01:00 PM EST [facility] ([facility]) Name Value Range Interpretation Code Description Data Laura rce(s) Supporting Document(s) Gardnerella negative Gardnerella [facility] ([facility]) ID Date Data Source [id number] 11/22/2020 01:01:00 PM EST [facility] ([facility]) Name Value Range Interpretation Code Description Data Laura rce(s) Supporting Document(s) Trichomonas negative Trichomonas [facility] ([facility]) ID Date Data Source [id number] 11/22/2020 01:01:00 PM EST [facility] ([facility]) Name Value Range Interpretation Code Description Data Laura rce(s) Supporting Document(s) Gardnerella negative Gardnerella [facility] ([facility]) ID Date Data Source [id number] 11/22/2020 01:01:00 PM EST [facility] ([facility]) Name Value Range Interpretation Code Description Data Laura rce(s) Supporting Document(s) Trichomonas negative Trichomonas [facility] ([facility]) ID Date Data Source [id number] 11/22/2020 01:01:00 PM EST [facility] ([facility]) Name Value Range Interpretation Code Description Data Laura rce(s) Supporting Document(s) Gardnerella negative Gardnerella [facility] ([facility]) ID Date Data Source [id number] 11/22/2020 01:01:00 PM EST [facility] ([facility]) Name Value Range Interpretation Code Description Data Laura rce(s) Supporting Document(s) Trichomonas negative Trichomonas [facility] ([facility]) ID Date Data Source [id number] 11/22/2020 12:59:00 PM EST [facility] ([facility]) Name Value Range Interpretation Code Description Data Laura rce(s) Supporting Document(s) Macy negative Macy [facility] ([facility]) ID Date Data Source [id number] 11/22/2020 12:59:00 PM EST [facility] ([facility]) Name Value Range Interpretation Code Description Data Laura rce(s) Supporting Document(s) Macy negative Macy [facility] ([facility]) ID Date Data Source [id number] 11/22/2020 12:59:00 PM EST [facility] ([facility]) Name Value Range Interpretation Code Description Data Laura rce(s) Supporting Document(s) Macy negative Macy [facility] ([facility]) ID Date Data Source [id number] 11/22/2020 12:59:00 PM EST [facility] ([facility]) Name Value Range Interpretation Code Description Data Laura rce(s) Supporting Document(s) Macy negative Macy [facility] ([facility]) ID Date Data Source [id number] 11/22/2020 12:59:00 PM EST [facility] ([facility]) Name Value Range Interpretation Code Description Data Laura rce(s) Supporting Document(s) Macy negative Macy [facility] ([facility]) ID Date Data Source [id number] 11/22/2020 12:59:00 PM EST [facility] ([facility]) Name Value Range Interpretation Code Description Data Laura rce(s) Supporting Document(s) Macy negative Macy [facility] ([facility]) ID Date Data Source [id number] 11/20/2020 02:40:00 PM EST [facility] ([facility]) Name Value Range Interpretation Code Description Data Laura rce(s) Supporting Document(s) Diagnosis ICD code comment . [facility] ([facility]) Pathology report site of origin Narrative comment . [facility] ([facility]) Pathologist name comment . [facility] ([facility]) Pathology report gross observation Narrative comment . [facility] ([facility]) Pathology report final diagnosis Narrative comment . [facility] ([facility]) Diagnosis ICD code comment . [facility] ([facility]) Payment procedure comment . [facility] ([facility]) ID Date Data Source [id number] 11/20/2020 02:40:00 PM EST [facility] ([facility]) Name Value Range Interpretation Code Description Data Laura rce(s) Supporting Document(s) Pathology report final diagnosis Narrative comment . [facility] ([facility]) Diagnosis ICD code comment . [facility] ([facility]) Pathology report site of origin Narrative comment . [facility] ([facility]) Diagnosis ICD code comment . [facility] ([facility]) Pathologist name comment . [facility] ([facility]) Pathology report gross observation Narrative comment . [facility] ([facility]) Payment procedure comment . [facility] ([facility]) ID Date Data Source [id number] 11/20/2020 02:40:00 PM EST [facility] ([facility]) Name Value Range Interpretation Code Description Data Laura rce(s) Supporting Document(s) Pathology report site of origin Narrative comment . [facility] ([facility]) Pathology report final diagnosis Narrative comment . [facility] ([facility]) Diagnosis ICD code comment . [facility] ([facility]) Diagnosis ICD code comment . [facility] ([facility]) Pathology report gross observation Narrative comment . [facility] ([facility]) Pathologist name comment . [facility] ([facility]) Payment procedure comment . [facility] ([facility]) ID Date Data Source [id number] 11/20/2020 02:40:00 PM EST [facility] ([facility]) Name Value Range Interpretation Code Description Data Laura rce(s) Supporting Document(s) Pathology report site of origin Narrative comment . [facility] ([facility]) Diagnosis ICD code comment . [facility] ([facility]) Pathology report gross observation Narrative comment . [facility] ([facility]) Pathology report final diagnosis Narrative comment . [facility] ([facility]) Pathologist name comment . [facility] ([facility]) Payment procedure comment . [facility] ([facility]) Diagnosis ICD code comment . [facility] ([facility]) ID Date Data Source [id number] 11/20/2020 02:40:00 PM EST [facility] ([facility]) Name Value Range Interpretation Code Description Data Laura rce(s) Supporting Document(s) Pathology report final diagnosis Narrative comment . [facility] ([facility]) Pathology report site of origin Narrative comment . [facility] ([facility]) Diagnosis ICD code comment . [facility] ([facility]) Diagnosis ICD code comment . [facility] ([facility]) Pathology report gross observation Narrative comment . [facility] ([facility]) Pathologist name comment . [facility] ([facility]) Payment procedure comment . [facility] ([facility]) ID Date Data Source [id number] 11/20/2020 02:40:00 PM EST [facility] ([facility]) Name Value Range Interpretation Code Description Data Laura rce(s) Supporting Document(s) Diagnosis ICD code comment . [facility] ([facility]) Pathology report site of origin Narrative comment . [facility] ([facility]) Pathology report final diagnosis Narrative comment . [facility] ([facility]) Diagnosis ICD code comment . [facility] ([facility]) Payment procedure comment . [facility] ([facility]) Pathology report gross observation Narrative comment . [facility] ([facility]) Pathologist name comment . [facility] ([facility]) ID Date Data Source [id number] 11/20/2020 12:00:00 AM EST [facility] ([facility]) Name Value Range Interpretation Code Description Data Laura rce(s) Supporting Document(s) Follitropin [Units/volume] in Serum or Plasma 5.8 mIU/mL Fsh [facility] ([facility]) ID Date Data Source [id number] 11/20/2020 12:00:00 AM EST [facility] ([facility]) Name Value Range Interpretation Code Description Data Laura rce(s) Supporting Document(s) Leukocytes [#/volume] in Blood by Automated count 6.6 x10e3/uL 3.4-10 .8 Wbc [facility] ([facility]) Erythrocytes [#/volume] in Blood by Automated count 4.13 x10e6/uL 3 .77-5.28 Rbc [facility] ([facility]) Hemoglobin [Mass/volume] in Blood 13.4 g/dL 11.1-15.9 He moglobin [facility] ([facility]) Hematocrit [Volume Fraction] of Blood by Automated count 39.4 % 34.0-46.6 Hematocrit [facility] ([facility]) Erythrocyte mean corpuscular volume [Entitic volume] by Auto mated count 95 fL 79-97 Mcv [facility] ([facility]) Erythrocyte mean corpuscular hemoglobin concentration [Mass/volume] by Automated count 34.0 g/dL 31.5-35.7 Mchc [facility] ([facility]) Erythrocyte mean corpuscular hemoglobin [Entitic mass] by Automated count 32.4 pg 26.6-33.0 Mch [facility] ([facility]) Neutrophils/100 leukocytes in Blood by Automated count 60 % not estab. Neutrophils [facility] ([facility]) Erythrocyte distribution width [Ratio] by Automated count 12.1 % 11.7-15.4 Rdw [facility] ([facility]) Platelets [#/volume] in Blood by Automated count 329 x10e3/uL 150-4 50 Platelets [facility] ([facility]) Lymphocytes/100 leukocytes in Blood by Automated count 28 % not estab. Lymphs [facility] ([facility]) Monocytes/100 leukocytes in Blood by Automated count 8 % not e stab. Monocytes [facility] ([facility]) immature cells statistical technician Immature Cells [facility]) Basophils/100 leukocytes in Blood by Automated count 1 % not e stab. Basos [facility] ([facility]) Eosinophils/100 leukocytes in Blood by Automated count 3 % not estab. Eos [facility] ([facility]) Neutrophils [#/volume] in Blood by Automated count 3.9 x10e3/uL 1.4 -7.0 Neutrophils (Absolute) [facility] ([facility]) Lymphocytes [#/volume] in Blood by Automated count 1.8 x10e3/uL 0.7 -3.1 Lymphs (Absolute) [facility] ([facility]) Monocytes [#/volume] in Blood by Automated count 0.5 x10e3/uL 0.1-0 .9 Monocytes(absolute) [facility] ([facility]) Basophils [#/volume] in Blood by Automated count 0.1 x10e3/uL 0.0-0 .2 Baso (Absolute) [facility] ([facility]) Eosinophils [#/volume] in Blood by Automated count 0.2 x10e3/uL 0.0 -0.4 Eos (Absolute) [facility] ([facility]) Immature granulocytes/100 leukocytes in Blood by Automated count 0 % not estab. Immature Granulocytes [facility] ([facility]) Immature granulocytes [#/volume] in Blood by Automated count 0.0 x10e3/uL 0.0-0.1 Immature Grans (Abs) [facility] ([facility]) Morphology [Interpretation] in Blood Narrative statistical technician Hematology Comments: [facility] ([facility]) Nucleated erythrocytes/100 leukocytes [Ratio] in Blood by Automa janett count statistical technician Nrbc [facility] ([facility]) ID Date Data Source [id number] 11/20/2020 12:00:00 AM EST [facility] ([facility]) Name Value Range Interpretation Code Description Data Laura rce(s) Supporting Document(s) Follitropin [Units/volume] in Serum or Plasma 5.8 mIU/mL Fsh [facility] ([facility]) ID Date Data Source [id number] 11/20/2020 12:00:00 AM EST [facility] ([facility]) Name Value Range Interpretation Code Description Data Laura rce(s) Supporting Document(s) Leukocytes [#/volume] in Blood by Automated count 6.6 x10e3/uL 3.4-10 .8 Wbc [facility] ([facility]) Erythrocytes [#/volume] in Blood by Automated count 4.13 x10e6/uL 3 .77-5.28 Rbc [facility] ([facility]) Hemoglobin [Mass/volume] in Blood 13.4 g/dL 11.1-15.9 He moglobin [facility] ([facility]) Erythrocyte mean corpuscular volume [Entitic volume] by Auto mated count 95 fL 79-97 Mcv [facility] ([facility]) Hematocrit [Volume Fraction] of Blood by Automated count 39.4 % 34.0-46.6 Hematocrit [facility] ([facility]) Erythrocyte mean corpuscular hemoglobin [Entitic mass] by Automated count 32.4 pg 26.6-33.0 Mch [facility] ([facility]) Erythrocyte distribution width [Ratio] by Automated count 12.1 % 11.7-15.4 Rdw [facility] ([facility]) Erythrocyte mean corpuscular hemoglobin concentration [Mass/volume] by Automated count 34.0 g/dL 31.5-35.7 Mchc [facility] ([facility]) Neutrophils/100 leukocytes in Blood by Automated count 60 % not estab. Neutrophils [facility] ([facility]) Lymphocytes/100 leukocytes in Blood by Automated count 28 % not estab. Lymphs [facility] ([facility]) Platelets [#/volume] in Blood by Automated count 329 x10e3/uL 150-4 50 Platelets [facility] ([facility]) Eosinophils/100 leukocytes in Blood by Automated count 3 % not estab. Eos [facility] ([facility]) Basophils/100 leukocytes in Blood by Automated count 1 % not e stab. Basos [facility] ([facility]) Monocytes/100 leukocytes in Blood by Automated count 8 % not e stab. Monocytes [facility] ([facility]) Neutrophils [#/volume] in Blood by Automated count 3.9 x10e3/uL 1.4 -7.0 Neutrophils (Absolute) [facility] ([facility]) immature cells statistical technician Immature Cells [facility] Lymphocytes [#/volume] in Blood by Automated count 1.8 x10e3/uL 0.7 -3.1 Lymphs (Absolute) [facility] ([facility]) Eosinophils [#/volume] in Blood by Automated count 0.2 x10e3/uL 0.0 -0.4 Eos (Absolute) [facility] ([facility]) Monocytes [#/volume] in Blood by Automated count 0.5 x10e3/uL 0.1-0 .9 Monocytes(absolute) [facility] ([facility]) Immature granulocytes/100 leukocytes in Blood by Automated count 0 % not estab. Immature Granulocytes [facility] ([facility]) Basophils [#/volume] in Blood by Automated count 0.1 x10e3/uL 0.0-0 .2 Baso (Absolute) [facility] ([facility]) Nucleated erythrocytes/100 leukocytes [Ratio] in Blood by Automa janett count statistical technician Nrbc [facility] ([facility]) Immature granulocytes [#/volume] in Blood by Automated count 0.0 x10e3/uL 0.0-0.1 Immature Grans (Abs) [facility] ([facility]) Morphology [Interpretation] in Blood Narrative statistical technician Hematology Comments: VIRGILIO ([facility]) ID Date Data Source [id number] 11/20/2020 12:00:00 AM EST V[facility] ([facility]) Name Value Range Interpretation Code Description Data Laura rce(s) Supporting Document(s) Follitropin [Units/volume] in Serum or Plasma 5.8 mIU/mL Fsh VIRGILIO ([facility]) ID Date Data Source [id number] 11/20/2020 12:00:00 AM EST [facility] ([facility]) Name Value Range Interpretation Code Description Data Laura rce(s) Supporting Document(s) Leukocytes [#/volume] in Blood by Automated count 6.6 x10e3/uL 3.4-10 .8 Wbc VIRG[facility] ([facility]) Hemoglobin [Mass/volume] in Blood 13.4 g/dL 11.1-15.9 He moglobin VIRGILIO ([facility]) Erythrocytes [#/volume] in Blood by Automated count 4.13 x10e6/uL 3 .77-5.28 Rbc [facility]IR[facility] ([facility]) Hematocrit [Volume Fraction] of Blood by Automated count 39.4 % 34.0-46.6 Hematocrit [facility]IR[facility]IL[facility] ([facility]) Erythrocyte mean corpuscular volume [Entitic volume] by Auto mated count 95 fL 79-97 Mcv [facility]IRGILIO ([facility]) Erythrocyte mean corpuscular hemoglobin [Entitic mass] by Automated count 32.4 pg 26.6-33.0 Mch [facility]IRGILIO ([facility]) Erythrocyte mean corpuscular hemoglobin concentration [Mass/volume] by Automated count 34.0 g/dL 31.5-35.7 Mchc VIRGILIO ([facility]) Erythrocyte distribution width [Ratio] by Automated count 12.1 % 11.7-15.4 Rdw VIRGILIO ([facility]) Platelets [#/volume] in Blood by Automated count 329 x10e3/uL 150-4 50 Platelets VIRGILIO ([facility]) Lymphocytes/100 leukocytes in Blood by Automated count 28 % not estab. Lymphs [facility]IR[facility]IL[facility] ([facility]) Neutrophils/100 leukocytes in Blood by Automated count 60 % not estab. Neutrophils [facility] ([facility]) Monocytes/100 leukocytes in Blood by Automated count 8 % not e stab. Monocytes [facility] ([facility]) Eosinophils/100 leukocytes in Blood by Automated count 3 % not estab. Eos [facility] ([facility]) Basophils/100 leukocytes in Blood by Automated count 1 % not e stab. Basos [facility] ([facility]) immature cells statistical technician Immature Cells [facility] ([facility]) Neutrophils [#/volume] in Blood by Automated count 3.9 x10e3/uL 1.4 -7.0 Neutrophils (Absolute) [facility] ([facility]) Monocytes [#/volume] in Blood by Automated count 0.5 x10e3/uL 0.1-0 .9 Monocytes(absolute) [facility] ([facility]) Lymphocytes [#/volume] in Blood by Automated count 1.8 x10e3/uL 0.7 -3.1 Lymphs (Absolute) [facility] ([facility]) Eosinophils [#/volume] in Blood by Automated count 0.2 x10e3/uL 0.0 -0.4 Eos (Absolute) [facility] ([facility]) Basophils [#/volume] in Blood by Automated count 0.1 x10e3/uL 0.0-0 .2 Baso (Absolute) [facility] ([facility]) Immature granulocytes [#/volume] in Blood by Automated count 0.0 x10e3/uL 0.0-0.1 Immature Grans (Abs) [facility] ([facility]) Nucleated erythrocytes/100 leukocytes [Ratio] in Blood by Automa janett count statistical technician Nrbc [facility] ([facility]) Immature granulocytes/100 leukocytes in Blood by Automated count 0 % not estab. Immature Granulocytes [facility] ([facility]) Morphology [Interpretation] in Blood Narrative statistical technician Hematology Comments: VIRGILIO ([facility]) ID Date Data Source [id number] 11/20/2020 12:00:00 AM EST [facility] ([facility]) Name Value Range Interpretation Code Description Data Laura rce(s) Supporting Document(s) Follitropin [Units/volume] in Serum or Plasma 5.8 mIU/mL Fsh [facility] ([facility]) ID Date Data Source [id number] 11/20/2020 12:00:00 AM EST [facility] ([facility]) Name Value Range Interpretation Code Description Data Laura rce(s) Supporting Document(s) Leukocytes [#/volume] in Blood by Automated count 6.6 x10e3/uL 3.4-10 .8 Wbc [facility] ([facility]) Hematocrit [Volume Fraction] of Blood by Automated count 39.4 % 34.0-46.6 Hematocrit [facility] ([facility]) Hemoglobin [Mass/volume] in Blood 13.4 g/dL 11.1-15.9 He moglobin [facility]IRGIL[facility] ([facility]) Erythrocytes [#/volume] in Blood by Automated count 4.13 x10e6/uL 3 .77-5.28 Rbc [facility] ([facility]) Erythrocyte mean corpuscular volume [Entitic volume] by Auto mated count 95 fL 79-97 Mcv [facility] ([facility]) Erythrocyte mean corpuscular hemoglobin [Entitic mass] by Automated count 32.4 pg 26.6-33.0 Mch [facility]IR[facility] ([facility]) Erythrocyte distribution width [Ratio] by Automated count 12.1 % 11.7-15.4 Rdw [facility] ([facility]) Platelets [#/volume] in Blood by Automated count 329 x10e3/uL 150-4 50 Platelets [facility]IR[facility] ([facility]) Erythrocyte mean corpuscular hemoglobin concentration [Mass/volume] by Automated count 34.0 g/dL 31.5-35.7 Mchc VIRGILIO ([facility]) Neutrophils/100 leukocytes in Blood by Automated count 60 % not estab. Neutrophils [facility] ([facility]) Lymphocytes/100 leukocytes in Blood by Automated count 28 % not estab. Lymphs [facility] ([facility]) Monocytes/100 leukocytes in Blood by Automated count 8 % not e stab. Monocytes [facility] ([facility]) Basophils/100 leukocytes in Blood by Automated count 1 % not e stab. Basos [facility] ([facility]) Eosinophils/100 leukocytes in Blood by Automated count 3 % not estab. Eos [facility] ([facility]) immature cells statistical technician Immature Cells [facility] ([facility]) Lymphocytes [#/volume] in Blood by Automated count 1.8 x10e3/uL 0.7 -3.1 Lymphs (Absolute) [facility] ([facility]) Neutrophils [#/volume] in Blood by Automated count 3.9 x10e3/uL 1.4 -7.0 Neutrophils (Absolute) [facility] ([facility]) Monocytes [#/volume] in Blood by Automated count 0.5 x10e3/uL 0.1-0 .9 Monocytes(absolute) [facility] ([facility]) Basophils [#/volume] in Blood by Automated count 0.1 x10e3/uL 0.0-0 .2 Baso (Absolute) [facility] ([facility]) Eosinophils [#/volume] in Blood by Automated count 0.2 x10e3/uL 0.0 -0.4 Eos (Absolute) [facility] ([facility]) Immature granulocytes [#/volume] in Blood by Automated count 0.0 x10e3/uL 0.0-0.1 Immature Grans (Abs) [facility] ([facility]) Immature granulocytes/100 leukocytes in Blood by Automated count 0 % not estab. Immature Granulocytes [facility]IR[facility] ([facility]) Nucleated erythrocytes/100 leukocytes [Ratio] in Blood by Automa janett count statistical technician Nrbc [facility] ([facility]) Morphology [Interpretation] in Blood Narrative statistical technician Hematology Comments: VIRGILIO ([facility]) ID Date Data Source [id number] 11/20/2020 12:00:00 AM EST [facility] ([facility]) Name Value Range Interpretation Code Description Data Laura rce(s) Supporting Document(s) Follitropin [Units/volume] in Serum or Plasma 5.8 mIU/mL Fsh [facility] ([facility]) ID Date Data Source [id number] 11/20/2020 12:00:00 AM EST [facility] ([facility]) Name Value Range Interpretation Code Description Data Laura rce(s) Supporting Document(s) Leukocytes [#/volume] in Blood by Automated count 6.6 x10e3/uL 3.4-10 .8 Wbc [facility] ([facility]) Hemoglobin [Mass/volume] in Blood 13.4 g/dL 11.1-15.9 He moglobin [facility]IR[facility] ([facility]) Erythrocytes [#/volume] in Blood by Automated count 4.13 x10e6/uL 3 .77-5.28 Rbc [facility] ([facility]) Hematocrit [Volume Fraction] of Blood by Automated count 39.4 % 34.0-46.6 Hematocrit [facility]IR[facility] ([facility]) Erythrocyte mean corpuscular hemoglobin [Entitic mass] by Automated count 32.4 pg 26.6-33.0 Mch V[facility] ([facility]) Erythrocyte mean corpuscular volume [Entitic volume] by Auto mated count 95 fL 79-97 Mcv [facility]IRGILIO ([facility]) Erythrocyte mean corpuscular hemoglobin concentration [Mass/volume] by Automated count 34.0 g/dL 31.5-35.7 Mchc [facility]IR[facility]ILIO ([facility]) Platelets [#/volume] in Blood by Automated count 329 x10e3/uL 150-4 50 Platelets [facility]IR[facility]IL[facility] ([facility]) Erythrocyte distribution width [Ratio] by Automated count 12.1 % 11.7-15.4 Rdw [facility]IR[facility] ([facility]) Neutrophils/100 leukocytes in Blood by Automated count 60 % not estab. Neutrophils [facility] ([facility]) Lymphocytes/100 leukocytes in Blood by Automated count 28 % not estab. Lymphs [facility] ([facility]) Eosinophils/100 leukocytes in Blood by Automated count 3 % not estab. Eos [facility] ([facility]) Monocytes/100 leukocytes in Blood by Automated count 8 % not e stab. Monocytes [facility] ([facility]) immature cells statistical technician Immature Cells [facility] ([facility]) Basophils/100 leukocytes in Blood by Automated count 1 % not e stab. Basos [facility] ([facility]) Lymphocytes [#/volume] in Blood by Automated count 1.8 x10e3/uL 0.7 -3.1 Lymphs (Absolute) [facility] ([facility]) Neutrophils [#/volume] in Blood by Automated count 3.9 x10e3/uL 1.4 -7.0 Neutrophils (Absolute) [facility] ([facility]) Monocytes [#/volume] in Blood by Automated count 0.5 x10e3/uL 0.1-0 .9 Monocytes(absolute) [facility]IR[facility] ([facility]) Immature granulocytes/100 leukocytes in Blood by Automated count 0 % not estab. Immature Granulocytes [facility] ([facility]) Eosinophils [#/volume] in Blood by Automated count 0.2 x10e3/uL 0.0 -0.4 Eos (Absolute) [facility] ([facility]) Basophils [#/volume] in Blood by Automated count 0.1 x10e3/uL 0.0-0 .2 Baso (Absolute) [facility] ([facility]) Immature granulocytes [#/volume] in Blood by Automated count 0.0 x10e3/uL 0.0-0.1 Immature Grans (Abs) [facility]IR[facility] ([facility]) Morphology [Interpretation] in Blood Narrative statistical technician Hematology Comments: VIRGILIO ([facility]) Nucleated erythrocytes/100 leukocytes [Ratio] in Blood by Automa janett count statistical technician Nrbc [facility] ([facility]) ID Date Data Source [id number] 11/20/2020 12:00:00 AM EST [facility] ([facility]) Name Value Range Interpretation Code Description Data Laura rce(s) Supporting Document(s) Follitropin [Units/volume] in Serum or Plasma 5.8 mIU/mL Fsh [facility] ([facility]) ID Date Data Source [id number] 11/20/2020 12:00:00 AM EST [facility] ([facility]) Name Value Range Interpretation Code Description Data Laura rce(s) Supporting Document(s) Erythrocytes [#/volume] in Blood by Automated count 4.13 x10e6/uL 3 .77-5.28 Rbc [facility] ([facility]) Hemoglobin [Mass/volume] in Blood 13.4 g/dL 11.1-15.9 He moglobin [facility]IR[facility]IO ([facility]) Leukocytes [#/volume] in Blood by Automated count 6.6 x10e3/uL 3.4-10 .8 Wbc [facility] ([facility]) Erythrocyte mean corpuscular hemoglobin [Entitic mass] by Automated count 32.4 pg 26.6-33.0 Mch [facility]IR[facility] ([facility]) Erythrocyte mean corpuscular volume [Entitic volume] by Auto mated count 95 fL 79-97 Mcv [facility]IO ([facility]) Hematocrit [Volume Fraction] of Blood by Automated count 39.4 % 34.0-46.6 Hematocrit [facility] ([facility]) Erythrocyte distribution width [Ratio] by Automated count 12.1 % 11.7-15.4 Rdw [facility]IR[facility]IO ([facility]) Erythrocyte mean corpuscular hemoglobin concentration [Mass/volume] by Automated count 34.0 g/dL 31.5-35.7 Mchc VIR[facility]ILIO ([facility]) Platelets [#/volume] in Blood by Automated count 329 x10e3/uL 150-4 50 Platelets [facility]IR[facility]IO ([facility]) Lymphocytes/100 leukocytes in Blood by Automated count 28 % not estab. Lymphs [facility] ([facility]) Monocytes/100 leukocytes in Blood by Automated count 8 % not e stab. Monocytes [facility] ([facility]) Neutrophils/100 leukocytes in Blood by Automated count 60 % not estab. Neutrophils [facility]IR[facility] ([facility]) immature cells statistical technician Immature Cells [facility] ([facility]) Basophils/100 leukocytes in Blood by Automated count 1 % not e stab. Basos [facility] ([facility]) Eosinophils/100 leukocytes in Blood by Automated count 3 % not estab. Eos [facility] ([facility]) Lymphocytes [#/volume] in Blood by Automated count 1.8 x10e3/uL 0.7 -3.1 Lymphs (Absolute) [facility] ([facility]) Neutrophils [#/volume] in Blood by Automated count 3.9 x10e3/uL 1.4 -7.0 Neutrophils (Absolute) [facility] ([facility]) Monocytes [#/volume] in Blood by Automated count 0.5 x10e3/uL 0.1-0 .9 Monocytes(absolute) [facility] ([facility]) Basophils [#/volume] in Blood by Automated count 0.1 x10e3/uL 0.0-0 .2 Baso (Absolute) [facility]IR[facility]ILIO ([facility]) Immature granulocytes/100 leukocytes in Blood by Automated count 0 % not estab. Immature Granulocytes [facility]IR[facility]ILIO ([facility]) Eosinophils [#/volume] in Blood by Automated count 0.2 x10e3/uL 0.0 -0.4 Eos (Absolute) [facility]IR[facility]IO ([facility]) Immature granulocytes [#/volume] in Blood by Automated count 0.0 x10e3/uL 0.0-0.1 Immature Grans (Abs) [facility]IR[facility]IO ([facility]) Nucleated erythrocytes/100 leukocytes [Ratio] in Blood by Automa janett count statistical technician Nrbc [facility] ([facility]) Morphology [Interpretation] in Blood Narrative statistical technician Hematology Comments: VIRGILIO ([facility]) Procedure Social History Code Duration Value Status Description Data Source(s ) Smoking 07/10/2021 12:00:00 AM EDT Patient is a former smoker completed Patient is a former smoker [facility] Smoking 05/16/2021 12:00:00 AM EDT - 05/27/2017 12:00:00 AM ED T Quit completed [facility] Vital Signs ID Date Data Source UNK Name Value Range Interpretation Code Description Data Source(s) Body temperature 97.3 [degF] 97.3 [degF] MED[facility] ([facility]) Body temperature 98.3 [degF] 98.3 [degF] [facility] Diastolic blood pressure 84 mm[Hg] 84 mm[Hg] VIR[facility]ILIO ([facility]) Body height 63.5 [in_i] 63.5 [in_i] [facility]IO ([facility]) Body mass index (BMI) [Ratio] 38.8 kg/m2 38.8 k g/m2 VIGRILIO ([facility]) Systolic blood pressure 120 mm[Hg] 120 mm[Hg] A THENA ([facility]) Body weight 222.6 [lb_av] 222.6 [lb_av] [facility]IR[facility]ILIO ([facility]) Diastolic blood pressure 72 mm[Hg] 72 mm[Hg] [facility] Respiratory rate 18 /min 18 /min [facility] ( [facility]) Body temperature 98.0 [degF] 98.0 [degF] [facility] ([facility]) Oxygen saturation in Arterial blood by Pulse oximetry 99.1 % 99.1 % [facility] ([facility]) Systolic blood pressure 124 mm[Hg] 124 mm[Hg] M EDENT ([facility]) Body height 62.9 [in_i] 62.9 [in_i] MEDENT ([facility]) 5'2.90" Body weight 218.25 [lb_av] 218.25 [lb_av] MEDEN T ([facility]) Body mass index (BMI) [Ratio] 38.8 kg/m2 38.8 k g/m2 MEDENT ([facility]) Heart rate 89 /min 89 /min [facility] ([facility]) [place] body weight 110 [lb_av] 110 [lb_av] MEDEN T ([facility]) Diastolic blood pressure 74 mm[Hg] 74 mm[Hg] VIRGILIO ([facility]) Body height 63.5 [in_i] 63.5 [in_i] VIRGILIO ([facility]) Body mass index (BMI) [Ratio] 38.5 kg/m2 38.5 k g/m2 [facility]IR[facility]IO ([facility]) Systolic blood pressure 118 mm[Hg] 118 mm[Hg] A THENA ([facility]) Body weight 221 [lb_av] 221 [lb_av] [facility]IRGILIO ([facility]) Diastolic blood pressure 74 mm[Hg] 74 mm[Hg] [facility]IR[facility]ILIO ([facility]) Body height 63.5 [in_i] 63.5 [in_i] [facility]IR[facility]ILIO ([facility]) Body mass index (BMI) [Ratio] 38.5 kg/m2 38.5 k g/m2 VIR[facility] ([facility]) Systolic blood pressure 118 mm[Hg] 118 mm[Hg] A THENA ([facility]) Body weight 221 [lb_av] 221 [lb_av] VIRGILIO ([facility]) Diastolic blood pressure 86 mm[Hg] 86 mm[Hg] [facility]IR[facility]ILIO ([facility]) Body height 63.5 [in_i] 63.5 [in_i] [facility]IRGILIO ([facility]) Body mass index (BMI) [Ratio] 38.7 kg/m2 38.7 k g/m2 [facility] ([facility]) Systolic blood pressure 122 mm[Hg] 122 mm[Hg] A THENA ([facility]) Body weight 222 [lb_av] 222 [lb_av] [facility]IRGILIO ([facility]) Diastolic blood pressure 86 mm[Hg] 86 mm[Hg] [facility]IR[facility]ILIO ([facility]) Body height 63.5 [in_i] 63.5 [in_i] [facility]IR[facility]ILIO ([facility]) Body mass index (BMI) [Ratio] 38.7 kg/m2 38.7 k g/m2 VIR[facility] ([facility]) Systolic blood pressure 122 mm[Hg] 122 mm[Hg] A THENA ([facility]) Body weight 222 [lb_av] 222 [lb_av] [facility]IR[facility]ILIO ([facility]) Diastolic blood pressure 86 mm[Hg] 86 mm[Hg] [facility]IR[facility]IO ([facility]) Body height 63.5 [in_i] 63.5 [in_i] [facility]IR[facility]ILIO ([facility]) Body mass index (BMI) [Ratio] 38.7 kg/m2 38.7 k g/m2 [facility] ([facility]) Systolic blood pressure 122 mm[Hg] 122 mm[Hg] A THENA ([facility]) Body weight 222 [lb_av] 222 [lb_av] [facility]IRGILIO ([facility]) Diastolic blood pressure 86 mm[Hg] 86 mm[Hg] [facility]IR[facility]IO ([facility]) Body height 63.5 [in_i] 63.5 [in_i] [facility]IR[facility]ILIO ([facility]) Body mass index (BMI) [Ratio] 38.7 kg/m2 38.7 k g/m2 [facility] ([facility]) Systolic blood pressure 122 mm[Hg] 122 mm[Hg] A THENA ([facility]) Body weight 222 [lb_av] 222 [lb_av] [facility]IR[facility]ILIO ([facility]) Body height 63.5 [in_i] 63.5 [in_i] [facility]IR[facility]ILIO ([facility]) Body mass index (BMI) [Ratio] 38.9 kg/m2 38.9 k g/m2 VIR[facility] ([facility]) Body weight 223 [lb_av] 223 [lb_av] [facility]IR[facility]IO ([facility]) Body height 63.5 [in_i] 63.5 [in_i] VIRGILIO ([facility]) Body mass index (BMI) [Ratio] 38.9 kg/m2 38.9 k g/m2 VIR[facility]IO ([facility]) Body weight 223 [lb_av] 223 [lb_av] [facility]IR[facility]IO ([facility]) Body height 63.5 [in_i] 63.5 [in_i] VIR[facility]ILIO ([facility]) Body mass index (BMI) [Ratio] 38.9 kg/m2 38.9 k g/m2 [facility]IO ([facility]) Body weight 223 [lb_av] 223 [lb_av] [facility]IR[facility]ILIO ([facility]) Body height 63.5 [in_i] 63.5 [in_i] [facility]IR[facility]ILIO ([facility]) Body mass index (BMI) [Ratio] 38.9 kg/m2 38.9 k g/m2 [facility] ([facility]) Body weight 223 [lb_av] 223 [lb_av] [facility]IO ([facility]) Body height 63.5 [in_i] 63.5 [in_i] VIRGILIO ([facility]) Body mass index (BMI) [Ratio] 38.9 kg/m2 38.9 k g/m2 [facility]IR[facility] ([facility]) Body weight 223 [lb_av] 223 [lb_av] [facility]IR[facility]IO ([facility]) Diastolic blood pressure 72 mm[Hg] 72 mm[Hg] VIRG[facility]IO ([facility]) Body height 63.5 [in_i] 63.5 [in_i] [facility]IR[facility]ILIO ([facility]) Body mass index (BMI) [Ratio] 39 kg/m2 39 kg/ m2 VIR[facility] ([facility]) Systolic blood pressure 112 mm[Hg] 112 mm[Hg] A THENA ([facility]) Body weight 223.4 [lb_av] 223.4 [lb_av] VIRGILIO ([facility]) Diastolic blood pressure 72 mm[Hg] 72 mm[Hg] VIRGILIO ([facility]) Body height 63.5 [in_i] 63.5 [in_i] [facility]IRGILIO ([facility]) Body mass index (BMI) [Ratio] 39 kg/m2 39 kg/ m2 VIR[facility] ([facility]) Systolic blood pressure 112 mm[Hg] 112 mm[Hg] A THENA ([facility]) Body weight 223.4 [lb_av] 223.4 [lb_av] [facility]IRGILIO ([facility]) Diastolic blood pressure 72 mm[Hg] 72 mm[Hg] VIRGILIO ([facility]) Body height 63.5 [in_i] 63.5 [in_i] [facility]IRGILIO ([facility]) Body mass index (BMI) [Ratio] 39 kg/m2 39 kg/ m2 [facility]IR[facility] ([facility]) Systolic blood pressure 112 mm[Hg] 112 mm[Hg] A THENA ([facility]) Body weight 223.4 [lb_av] 223.4 [lb_av] [facility]IRGILIO ([facility]) Diastolic blood pressure 72 mm[Hg] 72 mm[Hg] VIRGILIO ([facility]) Body height 63.5 [in_i] 63.5 [in_i] [facility]IR[facility]IO ([facility]) Body mass index (BMI) [Ratio] 39 kg/m2 39 kg/ m2 [facility] ([facility]) Systolic blood pressure 112 mm[Hg] 112 mm[Hg] A THENA ([facility]) Body weight 223.4 [lb_av] 223.4 [lb_av] [facility]IR[facility]IO ([facility]) Diastolic blood pressure 72 mm[Hg] 72 mm[Hg] VIRG[facility]IO ([facility]) Body height 63.5 [in_i] 63.5 [in_i] [facility]IR[facility]IO ([facility]) Body mass index (BMI) [Ratio] 39 kg/m2 39 kg/ m2 [facility] ([facility]) Systolic blood pressure 112 mm[Hg] 112 mm[Hg] A THENA ([facility]) Body weight 223.4 [lb_av] 223.4 [lb_av] [facility]IRGILIO ([facility]) Diastolic blood pressure 72 mm[Hg] 72 mm[Hg] VIRGILIO ([facility]) Body height 63.5 [in_i] 63.5 [in_i] [facility]IRG[facility]IO ([facility]) Body mass index (BMI) [Ratio] 39 kg/m2 39 kg/ m2 [facility] ([facility]) Systolic blood pressure 112 mm[Hg] 112 mm[Hg] A THENA ([facility]) Body weight 223.4 [lb_av] 223.4 [lb_av] VIRGILIO ([facility]) Diastolic blood pressure 78 mm[Hg] 78 mm[Hg] VIRGILIO ([facility]) Body height 63.5 [in_i] 63.5 [in_i] [facility]IR[facility]ILIO ([facility]) Body mass index (BMI) [Ratio] 39 kg/m2 39 kg/ m2 [facility] ([facility]) Systolic blood pressure 112 mm[Hg] 112 mm[Hg] A THENA ([facility]) Body weight 223.4 [lb_av] 223.4 [lb_av] VIRGILIO ([facility]) Diastolic blood pressure 78 mm[Hg] 78 mm[Hg] VIRGILIO ([facility]) Body height 63.5 [in_i] 63.5 [in_i] [facility]IR[facility]IO ([facility]) Body mass index (BMI) [Ratio] 39 kg/m2 39 kg/ m2 VIR[facility]IO ([facility]) Systolic blood pressure 112 mm[Hg] 112 mm[Hg] A THENA ([facility]) Body weight 223.4 [lb_av] 223.4 [lb_av] VIRGILIO ([facility]) Diastolic blood pressure 78 mm[Hg] 78 mm[Hg] VIRGILIO ([facility]) Body height 63.5 [in_i] 63.5 [in_i] VIRGILIO ([facility]) Body mass index (BMI) [Ratio] 39 kg/m2 39 kg/ m2 VIR[facility] ([facility]) Systolic blood pressure 112 mm[Hg] 112 mm[Hg] A THENA ([facility]) Body weight 223.4 [lb_av] 223.4 [lb_av] VIRGILIO ([facility]) Diastolic blood pressure 78 mm[Hg] 78 mm[Hg] VIRGILIO ([facility]) Body height 63.5 [in_i] 63.5 [in_i] VIRG[facility]IO ([facility]) Body mass index (BMI) [Ratio] 39 kg/m2 39 kg/ m2 [facility]IR[facility] ([facility]) Systolic blood pressure 112 mm[Hg] 112 mm[Hg] A THENA ([facility]) Body weight 223.4 [lb_av] 223.4 [lb_av] [facility]IRGILIO ([facility]) Diastolic blood pressure 78 mm[Hg] 78 mm[Hg] VIRG[facility]IO ([facility]) Body height 63.5 [in_i] 63.5 [in_i] [facility]IRGILIO ([facility]) Body mass index (BMI) [Ratio] 39 kg/m2 39 kg/ m2 VIRG[facility]IO ([facility]) Systolic blood pressure 112 mm[Hg] 112 mm[Hg] A THENA ([facility]) Body weight 223.4 [lb_av] 223.4 [lb_av] VIRGILIO ([facility]) Diastolic blood pressure 78 mm[Hg] 78 mm[Hg] VIRGILIO ([facility]) Body height 63.5 [in_i] 63.5 [in_i] VIRGILIO ([facility]) Body mass index (BMI) [Ratio] 39 kg/m2 39 kg/ m2 VIRG[facility]IO ([facility]) Systolic blood pressure 112 mm[Hg] 112 mm[Hg] A THENA ([facility]) Body weight 223.4 [lb_av] 223.4 [lb_av] VIRGILIO ([facility]) Diastolic blood pressure 78 mm[Hg] 78 mm[Hg] VIRGILIO ([facility]) Body height 63.5 [in_i] 63.5 [in_i] VIRGILIO ([facility]) Body mass index (BMI) [Ratio] 39 kg/m2 39 kg/ m2 VIRGILIO ([facility]) Systolic blood pressure 112 mm[Hg] 112 mm[Hg] A THENA ([facility]) Body weight 223.4 [lb_av] 223.4 [lb_av] VIRGILIO ([facility]) Patient Treatment Plan of Care Planned Activity Planned Date Details Description Data Source (s) Levonorgestrel 0.514207 MG/HR Drug Implant [Mirena] 02/16/20 12:00:00 AM EDT VIRGILIO ([facility] [facility]) Dwayne 24 Fe 1 mg-20 mcg (24)/75 mg (4) t ablet TAKE ONE TABLET BY MOUTH EVERY DAY [facility] ([facility]) Dwayne 24 Fe 1 mg-20 mcg (24)/75 mg (4) t ablet TAKE ONE TABLET BY MOUTH EVERY DAY [facility] ([facility]) Dwayne 24 Fe 1 mg-20 mcg (24)/75 mg (4) t ablet TAKE ONE TABLET BY MOUTH EVERY DAY [facility] ([facility]) Dwayne 24 Fe 1 mg-20 mcg (24)/75 mg (4) t ablet TAKE ONE TABLET BY MOUTH EVERY DAY [facility] ([facility]) Dwayne 24 Fe 1 mg-20 mcg (24)/75 mg (4) t ablet TAKE ONE TABLET BY MOUTH EVERY DAY [facility] ([facility]) Dwayne 24 Fe 1 mg-20 mcg (24)/75 mg (4) t ablet TAKE ONE TABLET BY MOUTH EVERY DAY [facility] ([facility])
[2021-08-24] MEDS ORDERED: propofoL 200 MG/20 ML VIAL As Ordered ONE (11:49)
--- NOTE | 2021-08-24 12:18 | ROOR ---
Patient Name: Janay Posada Procedure Date: 08/24/2021 11:35 AM Date of : 1980 Age: 41 Room: [facility] Gender: Female Note Status: Finalized Procedure: Colonoscopy Indications: Hematochezia Providers: Ariel Sherwood MD Referring MD: Maddie JURADO DO Requesting Provider: Medicines: Monitored Anesthesia Care Complications: No immediate complications. Procedure: Pre-Anesthesia Assessment: - Prior to the procedure, a History and Physical was performed, and patient medications and allergies were reviewed. The patient is competent. The risks and benefits of the procedure and the sedation options and risks were discussed with the patient. All questions were answered and informed consent was obtained. Patient identification and proposed procedure were verified by the physician, the nurse and the anesthesiologist in the procedure room. Mental Status Examination: alert and oriented. Airway Examination: normal oropharyngeal airway and neck mobility. Respiratory Examination: clear to auscultation. CV Examination: normal. Prophylactic Antibiotics: The patient does not require prophylactic antibiotics. Prior Anticoagulants: The patient has taken no previous anticoagulant or antiplatelet agents. ASA Grade Assessment: II - A patient with mild systemic disease. After reviewing the risks and benefits, the patient was deemed in satisfactory condition to undergo the procedure. The anesthesia plan was to use monitored anesthesia care (MAC). Immediately prior to administration of medications, the patient was re-assessed for adequacy to receive sedatives. The heart rate, respiratory rate, oxygen saturations, blood pressure, adequacy of pulmonary ventilation, and response to care were monitored throughout the procedure. The physical status of the patient was re-assessed after the procedure. The Colonoscope was introduced through the anus and advanced to the terminal ileum, with identification of the appendiceal orifice and IC valve. The colonoscopy was performed without difficulty. The patient tolerated the procedure well. The quality of the bowel preparation was good. The terminal ileum, ileocecal valve, appendiceal orifice, and rectum were photographed. Scope insertion time was 2 minutes. Scope withdrawal time was 8 minutes. The total duration of the procedure was 10 minutes. Findings: The perianal and digital rectal examinations were normal. The terminal ileum appeared normal. Four sessile polyps were found in the rectum. The polyps were 3 to 4 mm in size. These polyps were removed with a jumbo cold forceps. Resection and retrieval were complete. Verification of patient identification for the specimen was done by the physician and nurse using the patient's name, date and medical record number. Estimated blood loss was minimal. Non-bleeding external and internal hemorrhoids were found during retroflexion. The hemorrhoids were medium-sized. Impression: - The examined portion of the ileum was normal. - Four 3 to 4 mm polyps in the rectum, removed with a jumbo cold forceps. Resected and retrieved. - Non-bleeding external and internal hemorrhoids. Recommendation: - Patient has a contact number available for emergencies. The signs and symptoms of potential delayed complications were discussed with the patient. Return to normal activities tomorrow. Written discharge instructions were provided to the patient. - High fiber diet. - Continue present medications. - Await pathology results. - Use fiber, for example Citrucel, Fibercon, Konsyl or Metamucil. - Repeat colonoscopy in 10 years for surveillance based on pathology results. - Telephone GI clinic for pathology results in 2 weeks. - Return to GI clinic if persistent symptoms or new symptoms. - Return to primary care physician. Procedure Code(s): --- Professional --- 01308, Colonoscopy, flexible; with biopsy, single or multiple Diagnosis Code(s): --- Professional --- K64.8, Other hemorrhoids K62.1, Rectal polyp K92.1, Melena (includes Hematochezia) CPT copyright 2019 [employer]. All rights reserved. The codes documented in this report are preliminary and upon customs director review may be revised to meet current compliance requirements. Ariel Sherwood MD Ariel Sherwood MD 08/24/2021 12:17:17 PM Electronically signed by Ariel Sherwood MD Number of Addenda: 0 Note Initiated On: 08/24/2021 11:35 AM Estimated Blood Loss: Estimated blood loss was minimal.
[2021-08-24 12:20] VITALS: BP 127/91
== END 2021-08-24 12:33 | disposition home or self-care (01) ==
LOC: M OPP 10:10
PROVIDERS: ATTEND Internal Medicine Gastroenterology
DX: K92.1 Melena (principal); K64.8 Other hemorrhoids; K62.1 Rectal polyp; K63.5 Polyp of colon; Z79.899 Other long term (current) drug therapy; Z91.013 Allergy to seafood

== ENCOUNTER 2021-10-05 14:17 | Outpatient (CLI) | payer BC ==
[~2021-10-05] VITALS: Ht 159.8 cm; Wt 98.9 kg
[~2021-10-05 14:17] MED LIST changes: +ALBUTEROL 90 MCG/ACT 8GM HFA INHALER INH PRN; +ALBUTEROL SULFATE 2.5 MG/0.5 ML INH NEB SOLN INH PRN; +EPINEPHrine INJ 1 MG/ML 1ML AMP IM PRN; -LIDOCAINE 2% 100MG/5ML SDV (FOR ANES.) As Ordered ONE; -NS 1,000 ML IV ONE; +NS 1,000 ML IV SCH; +diphenhydrAMINE 50MG/ML VIAL (J1200) IV PRN; +methylPREDNISolone 125MG 2ML VIAL IV PRN; -propofoL 200 MG/20 ML VIAL As Ordered ONE
[2021-10-05 14:56] VITALS: BP 112/70
[2021-10-05] MEDS ORDERED: CASIRIVIMAB/IMDEVIMAB 1,200 MG in NS 250 ML IV ONE (15:00)
[2021-10-05 15:26] VITALS: BP 114/73
[2021-10-05 15:56] VITALS: BP 120/77
[2021-10-05 16:56] VITALS: BP 129/77
[2021-10-05 17:03] VITALS: BP 114/73
== END 2021-10-05 16:56 | disposition home or self-care (01) ==
LOC: M OPCLI4PR 14:17
PROVIDERS: ATTEND Family Medicine
DX: U07.1 COVID-19 (principal); Z91.013 Allergy to seafood

== ENCOUNTER → 2022-05-17 | Outpatient (CLI) | payer BC ==
[~2022-05-17] MED LIST changes: -ALBUTEROL 90 MCG/ACT 8GM HFA INHALER INH PRN; -ALBUTEROL SULFATE 2.5 MG/0.5 ML INH NEB SOLN INH PRN; -EPINEPHrine INJ 1 MG/ML 1ML AMP IM PRN; -NS 1,000 ML IV SCH; -diphenhydrAMINE 50MG/ML VIAL (J1200) IV PRN; -methylPREDNISolone 125MG 2ML VIAL IV PRN
[2022-05-17 13:14] LABS: BASO # 0.1 10^3/uL (0.0-0.2); BASO % 0.8 % (0.0-1.0); EOS # 0.3 10^3/uL (0.0-0.5); EOS % 3.6 % (0.0-3.0); HEMATOCRIT 41.1 % (36.0-47.0); HEMOGLOBIN 13.7 g/dl (12.0-15.5); LYMPH # 2.4 10^3/uL (1.5-5.0); LYMPH % 32.5 % (24.0-44.0); MEAN CORPUSCULAR HEMOGLOBIN 32.6 pg (27.0-33.0); MEAN CORPUSCULAR HGB CONC 33.3 g/dl (32.0-36.5); MEAN CORPUSCULAR VOLUME 97.9 fl (80.0-96.0); MONO # 0.6 10^3/uL (0.0-0.8); MONO % 7.6 % (2.0-8.0); NEUTROPHILS % 55.1 % (36.0-66.0); PLATELET COUNT, AUTOMATED 310 10^3/uL (150-450); WHITE BLOOD COUNT 7.3 10^3/uL (4.0-10.0)
[2022-05-17 14:34] LABS: ALBUMIN 3.8 GM/DL (3.2-5.2); ALT/SGPT 18 U/L (12-78); BILIRUBIN,TOTAL 0.5 MG/DL (0.2-1.0); BLOOD UREA NITROGEN 7 MG/DL (7-18); CALCIUM LEVEL 8.9 MG/DL (8.5-10.1); CARBON DIOXIDE LEVEL 27 MEQ/L (21-32); CHLORIDE LEVEL 107 MEQ/L (98-107); CHOLESTEROL LEVEL 189 MG/DL (<200); CHOLESTEROL RISK RATIO 2.589 (<5); FREE T4 0.97 NG/DL (0.76-1.46); GLOMERULAR FILTRATION RATE > 60.0 (>58); GLUCOSE, FASTING 85 MG/DL (70-100); HDL CHOLESTEROL 73 MG/DL (>40); LDL CHOLESTEROL 108 MG/DL (<100); NON-HDL-C 116 MG/DL; POTASSIUM SERUM 4.4 MEQ/L (3.5-5.1); SODIUM LEVEL 138 MEQ/L (136-145); TOTAL PROTEIN 7.2 GM/DL (6.4-8.2); TRIGLYCERIDES LEVEL 39 MG/DL (<150)
== END ==
LOC: M WUC 11:05
PROVIDERS: ATTEND Family Medicine
DX: Z00.01 Encounter for general adult medical examination with abnormal findings (principal); Z13.220 Encounter for screening for lipoid disorders; Z13.0 Encounter for screening for diseases of the blood and blood-forming organs and certain disorders involving the immune mechanism

== ENCOUNTER → 2022-05-24 | Outpatient (REF) | payer OTHER, BC | LOC: M LAB REF 15:12 | PROVIDERS: ATTEND Family Medicine | DX: N39.46 Mixed incontinence (principal) ==

== ENCOUNTER → 2023-03-12 | Outpatient (REF) | payer OTHER, BC ==
[2023-03-12 23:02] LABS: APPEARANCE, URINE CLEAR (CLEAR); BACTERIA, URINE AUTO 1+ (NEGATIVE); BILIRUBIN, URINE AUTO NEGATIVE (NEGATIVE); BLOOD, URINE BLOOD NEGATIVE (NEGATIVE); COLOR, URINE STRAW (YELLOW); GLUCOSE, URINE (UA) AUTO NEGATIVE (NEGATIVE); KETONE, URINE AUTO TRACE mg/dL (NEGATIVE); LEUKOCYTE ESTERASE, URINE AUTO NEGATIVE (NEGATIVE); NITRITE, URINE AUTO NEGATIVE (NEGATIVE); PROTEIN, URINE AUTO NEGATIVE (NEGATIVE); RBC, URINE AUTO 0 /HPF (0-3); SPECIFIC GRAVITY URINE AUTO 1.008 (1.002-1.035); SQUAMOUS EPITHELIAL CELL UR AU 1 /HPF (0-6); UROBILINOGEN, URINE AUTO 0.2 mg/dL (0.0-2.0); WBC, URINE AUTO 0 /HPF (0-3)
== END ==
LOC: M LAB REF 22:37
PROVIDERS: ATTEND Physician Assistant Medical
DX: N39.0 Urinary tract infection, site not specified (principal)

== ENCOUNTER → 2023-05-27 | Outpatient (REF) | payer OTHER | LOC: M LAB REF 16:55 | PROVIDERS: ATTEND Family Medicine | DX: R39.15 Urgency of urination (principal) ==

== ENCOUNTER → 2023-05-29 | Outpatient (REF) | payer OTHER | LOC: M LAB REF 17:10 | PROVIDERS: ATTEND Family Medicine | DX: R39.15 Urgency of urination (principal) ==

== ENCOUNTER → 2023-06-04 | Outpatient (CLI) | payer BC, OTHER | LOC: M RAD 14:31 | PROVIDERS: ATTEND Family Medicine | DX: R39.15 Urgency of urination (principal) ==

== ENCOUNTER → 2023-06-04 | Outpatient (CLI) | payer OTHER ==
[2023-06-04 09:55] LABS: BASO # 0.1 10^3/uL (0.0-0.2); BASO % 0.7 % (0.0-1.0); EOS # 0.3 10^3/uL (0.0-0.5); EOS % 4.1 % (0.0-3.0); HEMATOCRIT 39.7 % (36.0-47.0); LYMPH # 2.1 10^3/uL (1.5-5.0); LYMPH % 28.8 % (24.0-44.0); MEAN CORPUSCULAR HEMOGLOBIN 32.3 pg (27.0-33.0); MEAN CORPUSCULAR HGB CONC 32.7 g/dl (32.0-36.5); MEAN CORPUSCULAR VOLUME 98.5 fl (80.0-96.0); MONO # 0.5 10^3/uL (0.0-0.8); MONO % 7.4 % (2.0-8.0); NEUTROPHILS # 4.2 10^3/uL (1.5-8.5); NEUTROPHILS % 58.3 % (36.0-66.0); PLATELET COUNT, AUTOMATED 275 10^3/uL (150-450); RED BLOOD COUNT 4.03 10^6/uL (4.00-5.40); WHITE BLOOD COUNT 7.1 10^3/uL (4.0-10.0)
[2023-06-04 10:32] LABS: FREE T4 1.04 NG/DL (0.89-1.76)
[2023-06-04 10:35] LABS: ALBUMIN 3.9 G/DL (3.2-5.2); ALKALINE PHOSPHATASE 60 U/L (46-116); ALT/SGPT 9 U/L (7.0-40); AST/SGOT < 8 U/L (<34); BILIRUBIN,TOTAL 0.4 MG/DL (0.3-1.2); BLOOD UREA NITROGEN 12 MG/DL (9-23); CALCIUM LEVEL 8.9 MG/DL (8.5-10.1); CARBON DIOXIDE LEVEL 27 MMOL/L (20-31); CHLORIDE LEVEL 104 MMOL/L (98-107); CHOLESTEROL LEVEL 183 MG/DL (<200); CREATININE FOR GFR 0.74 MG/DL (0.55-1.30); GLOMERULAR FILTRATION RATE > 60.0 (>58); GLUCOSE, FASTING 81 MG/DL (60-100); HDL CHOLESTEROL 76.1 MG/DL (>40); LDL CHOLESTEROL 99.9 MG/DL (<100); NON-HDL-C 106.9 MG/DL; POTASSIUM SERUM 4.3 MMOL/L (3.5-5.1); SODIUM LEVEL 140 MMOL/L (136-145); TOTAL PROTEIN 6.7 G/DL (5.7-8.2); TRIGLYCERIDES LEVEL 35 MG/DL (<150)
== END ==
LOC: M WUC 08:04
PROVIDERS: ATTEND Family Medicine
DX: Z13.29 Encounter for screening for other suspected endocrine disorder (principal); Z13.220 Encounter for screening for lipoid disorders; Z13.0 Encounter for screening for diseases of the blood and blood-forming organs and certain disorders involving the immune mechanism